=== PATIENT | female | born 1955 | race Caucasian/White ===

== ENCOUNTER 2017-11-05 07:58 | Observation (INO) | payer MEDICAID ==
[~2017-11-05] VITALS: Ht 170.2 cm; Wt 59.5 kg
[2017-11-05 08:28] VITALS: BP 140/46
[2017-11-05] MEDS ORDERED: PLEASE ENTER HEIGHT AND WEIGHT MC SCH (08:30)
[2017-11-05] MEDS ORDERED: BUDE10.2 INH (08:45)
[2017-11-05] MEDS ORDERED: IPRA4AER INH (08:45)
[2017-11-05] MEDS ORDERED: FURO20TA3 PO (08:45)
[2017-11-05] MEDS ORDERED: LISI-170 PO (08:45)
[2017-11-05] MEDS ORDERED: CARV3.1212 PO (08:45)
[2017-11-05 08:46] LABS: BASOPHILS # (AUTO) 0.04 x10^3/uL (0-0.1); BASOPHILS % (AUTO) 1 % (0-1); EOSINOPHILS # (AUTO) 0.09 x10^3/uL (0-0.4); EOSINOPHILS % (AUTO) 2 % (1-7); LYMPHOCYTES # (AUTO) 1.29 x10^3/uL (1-3.4); LYMPHOCYTES % (AUTO) 20 % (22-44); MD NO; MEAN CORPUSCULAR HEMOGLOBIN 33.4 pg (27.0-34.8); MEAN CORPUSCULAR HGB CONC 33.7 g/dL (32.4-35.8); MEAN CORPUSCULAR VOLUME 99.2 fL (80-100); MEAN PLATELET VOLUME 6.8 fL (7.4-10.4); MONOCYTES # (AUTO) 0.61 x10^3/uL (0.2-0.8); MONOCYTES % (AUTO) 10 % (2-9); NEUTROPHILS % (AUTO) 68 % (42-75); PLATELET COUNT 266 x10^3/uL (130-400); RED BLOOD COUNT 3.87 x10^6/uL (3.82-5.3); RED CELL DISTRIBUTION WIDTH 14.9 % (9.6-15.2)
[2017-11-05 08:56] LABS: ALANINE AMINOTRANSFERASE 61 U/L (12-78); ALBUMIN 4.1 g/dL (3.4-5.0); ANION GAP 7 mmol/L (5-15); CALCIUM 9.1 mg/dL (8.5-10.1); CHLORIDE 93 mmol/L (98-107); CREATININE 0.61 mg/dL (0.55-1.02)
[2017-11-05 08:59] LABS: ALKALINE PHOSPHATASE 106 U/L (45-117); BILIRUBIN,TOTAL 0.5 mg/dL (0.2-1.0); TOTAL PROTEIN 7.8 g/dL (6.4-8.2)
[2017-11-05] MEDS ORDERED: PROMETHAZINE 25 MG/ML, 1ML IV PRN (10:00)
[2017-11-05] MEDS ORDERED: EPHEDRINE 50 MG/ML, 1ML IM PRN (10:00)
[2017-11-05] MEDS ORDERED: EPHEDRINE 50 MG/ML, 1ML IVPush PRN (10:00)
[2017-11-05] MEDS ORDERED: PROMETHAZINE 12.5 MG SUPP PR PRN (10:00)
[2017-11-05] MEDS ORDERED: DIPHENHYDRAMINE 50 MG/ML, 1ML IVPush PRN (10:00)
[2017-11-05] MEDS ORDERED: ONDANSETRON ODT 8 MG PO PRN (10:00)
[2017-11-05] MEDS ORDERED: PROMETHAZINE 25 MG SUPP PR PRN (10:00)
[2017-11-05] MEDS ORDERED: ACETAMINOPHEN 325 MG TABLET PO PRN (10:00)
[2017-11-05] MEDS ORDERED: OXYcodone 5 MG/5 ML ORAL.SOL UDC PO PRN (10:00)
[2017-11-05] MEDS ORDERED: MIDAZOLAM 1 MG/ML, 2ML IV PRN (10:00)
[2017-11-05] MEDS ORDERED: MORPHINE SULFATE 4 MG/ML, 1ML IVPush PRN (10:00)
[2017-11-05] MEDS ORDERED: PROPOFOL 10 MG/ML, 20ML ONE ×2 (10:55→12:37)
[2017-11-05] MEDS ORDERED: PROPOFOL 50 ML ONE (10:55)
[2017-11-05] MEDS ORDERED: FENTANYL PF 100 MCG/2ML ONE ×2 (10:57→13:23)
[2017-11-05] MEDS ORDERED: LIDOCAINE 1%, 50ML ONE (11:28)
[2017-11-05] MEDS ORDERED: CEFAZOLIN 1,000 MG ONE ×2 (11:29→11:35)
[2017-11-05] MEDS ORDERED: ADENOSINE 6 MG/2 ML ONE (12:22)
[2017-11-05] MEDS ORDERED: ZOLPIDEM 5MG TABLET PO PRN (13:00)
[2017-11-05] MEDS ORDERED: HOLD MEDICATION MC PRN (13:00)
[2017-11-05] MEDS ORDERED: OXYcodone 5 MG/5 ML ORAL.SOL UDC ONE (13:24)
[2017-11-05] MEDS: FENTANYL PF 100 MCG/2ML IV PRN ×2 (13:30→13:44)
[2017-11-05] MEDS ORDERED: ALBUTEROL SULFATE 2.5 MG/3 ML ONE (14:33)
[2017-11-05] MEDS ORDERED: ALBUTEROL SULFATE 2.5 MG/3 ML NPPB PRN (15:00)
[2017-11-05 15:08] VITALS: BP 158/87
[2017-11-05] MEDS ORDERED: ALBUTEROL/IPRATROPIUM 2.5MG/0.5MG, 3 ML NPPB PRN (15:30)
[2017-11-05] MEDS: SODIUM CHLORIDE 0.9% 1,000 ML IV SCH ×2 (16:15→17:47)
[2017-11-05] MEDS: CARVEDILOL 12.5 MG TABLET PO SCH (17:41)
[2017-11-05] MEDS: ACETAMINOPHEN 325 MG TABLET PO PRN ×2 (17:42→23:13)
[2017-11-05] MEDS: CEFAZOLIN PMX 1GM/50ML 50 ML IVPB SCH (19:53)
[2017-11-05] MEDS: SODIUM CHLORIDE FLUSH 10ML SYR IVF SCH (19:53)
[2017-11-05 20:00] VITALS: BP_SYST 108; BP_SYST 148; BP_DIAS 66; BP_DIAS 78
[2017-11-06] MEDS ORDERED: HYDROcodone/APAP 5/325 TABLET PO ONE (01:30)
[2017-11-06] MEDS ORDERED: HYDROcodone/APAP 5/325 TABLET ONE (01:38)
[2017-11-06 01:47] VITALS: BP 148/75
[2017-11-06] MEDS: CEFAZOLIN PMX 1GM/50ML 50 ML IVPB SCH (03:59)
[2017-11-06 05:35] VITALS: BP 101/60
[2017-11-06] MEDS: CARVEDILOL 12.5 MG TABLET PO SCH (05:36)
[2017-11-06] MEDS ORDERED: SUFentanil 50 MCG/ML, 5ML ONE (07:23)
[2017-11-06] MEDS ORDERED: MIDAZOLAM 10MG/2 ML ONE (07:23)
[2017-11-06 07:45] VITALS: BP 121/72
[2017-11-06] MEDS ORDERED: FLUTICASONE/VILANTEROL 200-25MCG/INH INH SCH (09:00)
[2017-11-06] MEDS: FUROSEMIDE 20 MG TABLET PO SCH ×2 (09:00→10:21)
[2017-11-06] MEDS ORDERED: LISINOPRIL 20 MG TABLET PO SCH (09:00)
[2017-11-06] MEDS ORDERED: PROPOFOL 10 MG/ML, 20ML ONE (10:05)
[2017-11-06] MEDS ORDERED: ROCURONIUM 10MG/ML,5ML ONE ×2 (10:05)
[2017-11-06] MEDS ORDERED: AMINOCAPROIC ACID 250 MG/ML, 20ML ONE ×2 (10:05)
[2017-11-06] MEDS ORDERED: PROTAMINE SULFATE 10 MG/ML, 25ML ONE (10:05)
[2017-11-06] MEDS: SODIUM CHLORIDE FLUSH 10ML SYR IVF SCH (10:21)
[2017-11-06] MEDS: ACETAMINOPHEN 325 MG TABLET PO PRN (10:22)
== END 2017-11-06 13:40 | disposition home or self-care (01) ==
LOC: CACL 07:58 → ORIP 12:59 → 5SO 15:04 → DCLOUNGE 11-06 13:32
PROVIDERS: ADMIT Internal Medicine Cardiovascular Disease; ATTEND Internal Medicine Cardiovascular Disease
DX: I42.9 Cardiomyopathy, unspecified (principal); I45.9 Conduction disorder, unspecified; I50.9 Heart failure, unspecified; I48.91 Unspecified atrial fibrillation; I34.0 Nonrheumatic mitral (valve) insufficiency
CPT/HCPCS: 33208; 33225; 36415; 71045; 80053; 85025; 94640; 96365; 96366; C1769; C1779; C1887; C1892; C1900; C2621; G0378; J0690; J2250; J2704; J3010; J3490; J7613; Q9967; J0153; J2720

== ENCOUNTER 2018-05-08 11:47 | Inpatient (IN) | payer MEDICAID ==
[~2018-05-08] VITALS: Ht 162.6 cm; Wt 81.2 kg
[~2018-05-08 11:47] MED LIST: BUDE10.2 INH; CARV3.1212 PO; ETOMIDATE 20 MG/10 ML ONE; FURO20TA3 PO; IPRA4AER INH; LISI-170 PO; MIDAZOLAM 1 MG/ML, 5ML ONE; SUCCINYLCHOLINE 20 MG/ML, 10ML ONE
[2018-05-08] MEDS ORDERED: SODIUM CHLORIDE 0.9% 1,000 ML IV ONE (11:58)
[2018-05-08] MEDS ORDERED: ALBUTEROL 0.5%, 20ML NPPB SCH (12:00)
[2018-05-08] MEDS ORDERED: IPRATROPIUM 0.5 MG/2.5 ML INHA NPPB ONE (12:00)
[2018-05-08] MEDS ORDERED: methylPREDNISolone SOD SUCC 125 MG/2 ML IVP ONE (12:00)
[2018-05-08] MEDS ORDERED: SODIUM CHLORIDE FLUSH 10ML SYR IVF ONE (12:00)
[2018-05-08] MEDS ORDERED: SODIUM CHLORIDE 0.9% 1,000ML IVBOLUS ONE ×2 (12:00→13:30)
--- NOTE | 2018-05-08 12:00 | NUR ---
requested records from [facility]
[2018-05-08] MEDS ORDERED: methylPREDNISolone SOD SUCC 125 MG/2 ML ONE (12:08)
[2018-05-08] MEDS ORDERED: ALBUTEROL/IPRATROPIUM 2.5MG/0.5MG, 3 ML ONE ×3 (12:09→16:32)
[2018-05-08] MEDS ORDERED: PIPERACILLIN/TAZO/PMX 3.375GM 50 ML IV ONE (12:30)
--- NOTE | 2018-05-08 12:33 | NUR ---
PT PRESENTED FROM HOME W RESP DIFF IS ON HOME O2 UNDER TX FOR COPD EXSACERBATION FROM NN UNABLE TO TALK ON ARRIVAL RELATED TO RESP DIFF
[2018-05-08 12:34] LABS: RAPID INFLUENZA A Negative (Negative); RAPID INFLUENZA B Negative (Negative)
--- NOTE | 2018-05-08 12:41 | NUR ---
PCO2 77.1 AND O2 SAT PER LAB REPORTED TO ERP
[2018-05-08 12:49] LABS: MEAN CORPUSCULAR HEMOGLOBIN 33.7 pg (27.0-34.8); MEAN CORPUSCULAR HGB CONC 32.6 g/dL (32.4-35.8); MEAN CORPUSCULAR VOLUME 103.3 fL (80-100); MEAN PLATELET VOLUME 7.1 fL (7.4-10.4); PLATELET COUNT 484 x10^3/uL (130-400); RED CELL DISTRIBUTION WIDTH 14.1 % (9.6-15.2)
--- NOTE | 2018-05-08 12:55 | NUR ---
PT CHANGE FROM OPTI FLOW TO BIPAP
[2018-05-08 12:56] LABS: ALBUMIN 2.4 g/dL (3.4-5.0); ANION GAP 5 mmol/L (5-15); CALCIUM 8.6 mg/dL (8.5-10.1); CHLORIDE 99 mmol/L (98-107); D-DIMER 1.39 ug/mlFEU (0.00-0.52); INTERNATIONAL NORMALIZED RATIO 1.18 (0.93-1.1); PROTHROMBIN TIME 12.3 Seconds (9.6-11.5)
[2018-05-08 12:59] LABS: ALANINE AMINOTRANSFERASE 15 U/L (12-78); ALKALINE PHOSPHATASE 70 U/L (45-117); BILIRUBIN,TOTAL 0.3 mg/dL (0.2-1.0); CREATININE 1.99 mg/dL (0.55-1.02); TOTAL PROTEIN 6.2 g/dL (6.4-8.2)
[2018-05-08 13:07] LABS: TROPONIN I 0.131 ng/mL (0.000-0.045)
[2018-05-08] MEDS ORDERED: MIDAZOLAM HCL 25 MG in SODIUM CHLORIDE 0.9% 245 ML IV PRN (13:18)
[2018-05-08 13:21] LABS: MD YES
[2018-05-08 13:27] LABS: BAND#(MANUAL) 12.04 x10^3/uL; BANDS%(MANUAL) 27 % (0-7); LYMPH#(MANUAL) 2.23 x10^3/uL (1-3.4); LYMPHS% (MANUAL) 5 % (22-44); METAMYELOCYTES# (MANUAL) 0.45 x10^3/uL (0-0); METAMYELOCYTES% (MANUAL) 1 % (0-1); MONOS#(MANUAL) 2.68 x10^3/uL (0.3-2.7); MONOS% (MANUAL) 6 % (2-9); SEG#(MANUAL) 27.21 x10^3/uL (1.8-6.8); SEGS% (MANUAL) 61 % (42-75)
[2018-05-08] MEDS ORDERED: ETOMIDATE 20 MG/10 ML IV ONE (13:30)
[2018-05-08] MEDS ORDERED: ASPIRIN 300 MG SUPP PR ONE (13:30)
[2018-05-08] MEDS ORDERED: VECURONIUM 10 MG ONE (13:30)
[2018-05-08] MEDS ORDERED: VECURONIUM 10 MG IVPush ONE (13:30)
[2018-05-08] MEDS ORDERED: SUCCINYLCHOLINE 20 MG/ML, 10ML IVPush ONE (13:30)
[2018-05-08 13:31] LABS: <PLATELET ESTIMATE> INCREASED; <PLT MORPHOLOGY> NORMAL PLT MORPH; PMNS WITH VACUOLES 1+; POLYCHROMASIA 1+
[2018-05-08] MEDS: SODIUM CHLORIDE 0.9% 1,000 ML IV SCH ×2 (13:31→23:52)
--- NOTE | 2018-05-08 13:56 | NUR ---
ASSUMED CARE OF PT WHILE PRIMARY RN AT LUNCH.
--- NOTE | 2018-05-08 13:57 | NUR ---
LAB IN FOR MONA
[2018-05-08] MEDS ORDERED: POLYETHYLENE GLYCOL 17 GM PACKET PO PRN (14:00)
[2018-05-08] MEDS ORDERED: BISACODYL 10 MG SUPP PR PRN (14:00)
--- NOTE | 2018-05-08 14:04 | NUR ---
PT MOVING LEGS AND MOVING ARMS. LAB AT BEDSIDE UNABLE TO GET ABGS.
--- NOTE | 2018-05-08 14:17 | NUR ---
PULIDO INSERTED PER MD ORDER.
[2018-05-08] MEDS ORDERED: NOREPINEPHRINE 4 MG in SODIUM CHLORIDE 0.9% 246 ML IV PRN (14:30)
--- NOTE | 2018-05-08 15:00 | NUR ---
PT INTUBATED AT APPOX THIS TIME UNDER RSI W DR LANDAVERDE AND RESP AT THE BS SATS MAINTAINED THROUGHOUT 23 AT THE LIPS
[2018-05-08] MEDS ORDERED: PROPOFOL 100 ML IV PRN (15:12)
[2018-05-08] MEDS ORDERED: LIDOCAINE-MPF 1%, 2ML ENDO PRN (15:30)
[2018-05-08] MEDS ORDERED: PHARMACY MAY ADJ FOR RENAL FX MC SCH (15:30)
--- NOTE | 2018-05-08 15:36 | NUR ---
CENTRAL LINE PLACEMENT COMPLETED
--- NOTE | 2018-05-08 15:40 | NUR ---
critical values taken from lab and reported to GAYLE Iraheta as follows: cortisol >150, ph 7.179, co2 81.8, o2 42.6, o2 sat 64.2, ph temp corrected 7.195, temp corrected co2 77.6, temp corrected o2 39.1. per , lab does not need to redraw, lab called to notify.
--- NOTE | 2018-05-08 15:55 | NUR ---
REPORT CALLED TO THE FLOOR PT THEN TRANSPORED TO THE FLOOR W RESP ON THE VENT NO CHNG IN PT COND DURING TRANSPORT
[2018-05-08] MEDS ORDERED: HEPARIN 25,000 UNITS/500ML PMX 500 ML IV PRN (17:00)
[2018-05-08] MEDS ORDERED: HEPARIN 5,000 UNITS/ML, 1ML IV ONE (17:00)
[2018-05-08] MEDS ORDERED: CEFTRIAXONE PMX 1GM/50ML 50 ML IV SCH (17:00)
[2018-05-08] MEDS ORDERED: HEPARIN 5,000 UNITS/ML, 1ML IV PRN (17:00)
[2018-05-08 17:09] LABS: MICROSCOPIC INDICATED
[2018-05-08 17:17] LABS: CULTURE INDICATED? YES
[2018-05-08] MEDS: AMIODARONE 900 MG in DEXTROSE 5% 482 ML IV PRN (18:27)
[2018-05-08] MEDS ORDERED: AMIODARONE 150 MG in DEXTROSE 5% 100 ML IV ONE (18:30)
[2018-05-08] MEDS ORDERED: FILTER 0.22 MICRON IV PRN (18:30)
[2018-05-08] MEDS ORDERED: NOREPINEPHRINE 1 MG/ML, 4ML ONE (18:53)
[2018-05-08] MEDS: DOXYCYCLINE 100 MG in DEXTROSE 5% 250 ML IV SCH (19:09)
[2018-05-08] MEDS: NOREPINEPHRINE 8 MG in SODIUM CHLORIDE 0.9% 242 ML IV PRN ×2 (19:58→23:51)
[2018-05-08] MEDS: PHENYLEPHRINE 20 MG in SODIUM CHLORIDE 0.9% 248 ML IV PRN ×2 (19:58→23:48)
[2018-05-08] MEDS: VASOPRESSIN 100 UNIT in SODIUM CHLORIDE 0.9% 495 ML IV PRN (19:58)
[2018-05-08 19:59] LABS: TROPONIN I 0.132 ng/mL (0.000-0.045)
[2018-05-08] MEDS: SODIUM BICARBONATE 8.4% 100 MEQ in DEXTROSE 5% 1,000 ML IV SCH (20:52)
[2018-05-08] MEDS ORDERED: FAMOTIDINE 20 MG/2 ML IVPush SCH (21:00)
[2018-05-09] MEDS: LORazepam 2 MG/ML, 1ML IVPush PRN
[2018-05-09 01:32] LABS: TROPONIN I 0.159 ng/mL (0.000-0.045)
[2018-05-09] MEDS ORDERED: ALBUTEROL/IPRATROPIUM 2.5MG/0.5MG, 3 ML ONE (03:04)
[2018-05-09] MEDS: ALBUTEROL/IPRATROPIUM 2.5MG/0.5MG, 3 ML NPPB PRN ×2 (03:10→10:55)
[2018-05-09] MEDS: SODIUM BICARBONATE 8.4% 100 MEQ in DEXTROSE 5% 1,000 ML IV SCH ×3 (03:28→19:50)
[2018-05-09] MEDS: NOREPINEPHRINE 8 MG in SODIUM CHLORIDE 0.9% 242 ML IV PRN ×4 (03:29→19:53)
[2018-05-09] MEDS: PHENYLEPHRINE 20 MG in SODIUM CHLORIDE 0.9% 248 ML IV PRN ×3 (03:29→10:36)
[2018-05-09 04:00] VITALS: BP 118/52
[2018-05-09 05:16] LABS: ALANINE AMINOTRANSFERASE 784 U/L (12-78); ALBUMIN 1.5 g/dL (3.4-5.0); ANION GAP 8 mmol/L (5-15); CALCIUM 6.7 mg/dL (8.5-10.1); CHLORIDE 100 mmol/L (98-107); CREATININE 2.34 mg/dL (0.55-1.02)
[2018-05-09 05:31] LABS: HEMOGRAM NOTE RECHECKED; MEAN CORPUSCULAR HEMOGLOBIN 34.4 pg (27.0-34.8); MEAN CORPUSCULAR HGB CONC 32.5 g/dL (32.4-35.8); MEAN CORPUSCULAR VOLUME 105.9 fL (80-100); MEAN PLATELET VOLUME 7.1 fL (7.4-10.4); PLATELET COUNT 434 x10^3/uL (130-400); RED BLOOD COUNT 3.06 x10^6/uL (3.82-5.3); RED CELL DISTRIBUTION WIDTH 14.3 % (9.6-15.2)
[2018-05-09 05:33] LABS: ALKALINE PHOSPHATASE 61 U/L (45-117); BILIRUBIN,TOTAL 0.2 mg/dL (0.2-1.0); CHOL/HDL RATIO 2.4; CHOLESTEROL, TOTAL 66 mg/dL (140-239); HDL CHOL % 42 % (28-40); HDL CHOLESTEROL (DIRECT) 28 mg/dL (40-60); LDL CHOLESTEROL,CALCULATED 24 mg/dL (54-169); LDL/HDL RATIO 0.9 (0.5-3.0); TOTAL PROTEIN 4.4 g/dL (6.4-8.2); TRIGLYCERIDES 69 mg/dL (50-200); VLDL CHOLESTEROL 14 mg/dL (0-25)
[2018-05-09] MEDS: DOXYCYCLINE 100 MG in DEXTROSE 5% 250 ML IV SCH ×2 (05:43→17:28)
[2018-05-09 06:31] LABS: MD YES
[2018-05-09 06:34] LABS: BAND#(MANUAL) 18.59 x10^3/uL; BANDS%(MANUAL) 45 % (0-7); LYMPH#(MANUAL) 0.41 x10^3/uL (1-3.4); LYMPHS% (MANUAL) 1 % (22-44); METAMYELOCYTES# (MANUAL) 2.89 x10^3/uL (0-0); METAMYELOCYTES% (MANUAL) 7 % (0-1); MONOS#(MANUAL) 0.41 x10^3/uL (0.3-2.7); MONOS% (MANUAL) 1 % (2-9); SEGS% (MANUAL) 46 % (42-75)
[2018-05-09 06:35] LABS: NRBC % (MANUAL) 1 % (0-1)
[2018-05-09 06:37] LABS: <PLATELET ESTIMATE> INCREASED; <PLT MORPHOLOGY> NORMAL PLT MORPH; PMNS WITH VACUOLES 1+
[2018-05-09 06:38] LABS: TOXIC GRAN 1+
[2018-05-09] MEDS ORDERED: SODIUM BICARBONATE 1 MEQ/ML, 50ML VIAL ONE (07:34)
[2018-05-09] MEDS ORDERED: SODIUM BICARB 8.4%, 50ML SYRINGE IVPush ONE (08:00)
[2018-05-09] MEDS: SENNA/DOCUSATE TABLET PO SCH (09:00)
[2018-05-09] MEDS ORDERED: INSULIN LISPRO 100 UNITS/ML, PEN SQ-INSULIN SCH (11:00)
[2018-05-09] MEDS: INSULIN LISPRO 100 UNITS/ML, PEN SQ-INSULIN SCH ×3 (11:38→23:00)
[2018-05-09] MEDS: PIPERACILLIN/TAZO/PMX 3.375GM 50 ML IV SCH ×2 (14:15→19:50)
[2018-05-09] MEDS: ALBUTEROL/IPRATROPIUM 2.5MG/0.5MG, 3 ML INLINE SCH ×4 (15:25→22:39)
[2018-05-09] MEDS: morphine SULFATE 10 MG/ML, 1ML IVPush PRN (17:28)
[2018-05-09] MEDS: AMIODARONE 900 MG in DEXTROSE 5% 482 ML IV PRN (18:17)
[2018-05-09] MEDS: FAMOTIDINE 20 MG/2 ML IVPush SCH (23:29)
[2018-05-10] MEDS: SODIUM BICARBONATE 8.4% 100 MEQ in DEXTROSE 5% 1,000 ML IV SCH ×2 (02:00→11:34)
[2018-05-10] MEDS: PIPERACILLIN/TAZO/PMX 3.375GM 50 ML IV SCH ×4 (02:00→20:26)
[2018-05-10] MEDS: morphine SULFATE 10 MG/ML, 1ML IVPush PRN ×2 (02:00→23:32)
[2018-05-10] MEDS: ALBUTEROL/IPRATROPIUM 2.5MG/0.5MG, 3 ML INLINE SCH ×6 (03:00→23:25)
[2018-05-10] MEDS: LORazepam 2 MG/ML, 1ML IVPush PRN (03:59)
[2018-05-10 04:00] VITALS: BP 104/55
[2018-05-10 04:45] LABS: MEAN CORPUSCULAR HEMOGLOBIN 34.4 pg (27.0-34.8); MEAN CORPUSCULAR HGB CONC 33.1 g/dL (32.4-35.8); MEAN CORPUSCULAR VOLUME 103.9 fL (80-100); PLATELET COUNT 267 x10^3/uL (130-400); RED BLOOD COUNT 2.76 x10^6/uL (3.82-5.3); RED CELL DISTRIBUTION WIDTH 14.3 % (9.6-15.2)
[2018-05-10] MEDS: INSULIN LISPRO 100 UNITS/ML, PEN SQ-INSULIN SCH ×4 (05:00→22:31)
[2018-05-10] MEDS: DOXYCYCLINE 100 MG in DEXTROSE 5% 250 ML IV SCH ×2 (05:27→17:49)
[2018-05-10 05:46] LABS: MD YES
[2018-05-10 05:49] LABS: <PLATELET ESTIMATE> ADEQUATE; <PLT MORPHOLOGY> NORMAL PLT MORPH; BAND#(MANUAL) 3.31 x10^3/uL; BANDS%(MANUAL) 12 % (0-7); LYMPH#(MANUAL) 0.28 x10^3/uL (1-3.4); LYMPHS% (MANUAL) 1 % (22-44); MONOS#(MANUAL) 2.21 x10^3/uL (0.3-2.7); MONOS% (MANUAL) 8 % (2-9); MYELOCYTES# (MANUAL) 0.28 x10^3/uL (0-0); MYELOCYTES% (MANUAL) 1 % (0-0); NRBC % (MANUAL) 1 % (0-1); PMNS WITH VACUOLES 1+; SEG#(MANUAL) 21.53 x10^3/uL (1.8-6.8); SEGS% (MANUAL) 78 % (42-75); TOXIC GRAN 1+
[2018-05-10 05:50] LABS: BASOPHILLIC STIPPLING 1+
[2018-05-10 05:52] LABS: POLYCHROMASIA 1+
[2018-05-10] MEDS: NOREPINEPHRINE 8 MG in SODIUM CHLORIDE 0.9% 242 ML IV PRN (08:06)
[2018-05-10] MEDS: SENNA/DOCUSATE TABLET PO SCH (08:24)
[2018-05-10 08:35] LABS: ALBUMIN 1.3 g/dL (3.4-5.0); ANION GAP 9 mmol/L (5-15); CALCIUM 6.4 mg/dL (8.5-10.1); CHLORIDE 92 mmol/L (98-107)
[2018-05-10 08:43] LABS: ALANINE AMINOTRANSFERASE 1290 U/L (12-78); ALKALINE PHOSPHATASE 81 U/L (45-117); BILIRUBIN,TOTAL 0.3 mg/dL (0.2-1.0); CREATININE 2.56 mg/dL (0.55-1.02); TOTAL PROTEIN 4.1 g/dL (6.4-8.2)
[2018-05-10] MEDS ORDERED: MAGNESIUM SULFATE PMX 4GM/100M 100 ML IVPB ONE (09:00)
[2018-05-10] MEDS ORDERED: ENOXAPARIN 80 MG/0.8 ML SQ SCH (10:30)
[2018-05-10] MEDS ORDERED: GLUCAGON 1 MG IM PRN (18:00)
[2018-05-10] MEDS: FAMOTIDINE 20 MG/2 ML IVPush SCH (20:26)
[2018-05-10] MEDS: SODIUM CHLORIDE FLUSH 10ML SYR IVF SCH (20:26)
[2018-05-10] MEDS: OXYcodone IR 5MG TABLET PO PRN (20:32)
[2018-05-11] MEDS: PIPERACILLIN/TAZO/PMX 3.375GM 50 ML IV SCH ×3 (01:54→13:44)
[2018-05-11] MEDS: AMIODARONE 900 MG in DEXTROSE 5% 482 ML IV PRN (02:24)
[2018-05-11] MEDS: ALBUTEROL/IPRATROPIUM 2.5MG/0.5MG, 3 ML INLINE SCH ×2 (03:00→06:17)
[2018-05-11] MEDS: OXYcodone IR 5MG TABLET PO PRN (03:28)
[2018-05-11] MEDS: INSULIN LISPRO 100 UNITS/ML, PEN SQ-INSULIN SCH ×4 (05:00→21:49)
[2018-05-11 05:27] LABS: MEAN CORPUSCULAR HEMOGLOBIN 33.7 pg (27.0-34.8); MEAN CORPUSCULAR HGB CONC 32.9 g/dL (32.4-35.8); MEAN CORPUSCULAR VOLUME 102.3 fL (80-100); MEAN PLATELET VOLUME 7.3 fL (7.4-10.4); PLATELET COUNT 194 x10^3/uL (130-400); RED BLOOD COUNT 2.86 x10^6/uL (3.82-5.3); RED CELL DISTRIBUTION WIDTH 14.2 % (9.6-15.2)
[2018-05-11] MEDS: DOXYCYCLINE 100 MG in DEXTROSE 5% 250 ML IV SCH ×2 (05:34→17:13)
[2018-05-11 05:55] LABS: MD YES
[2018-05-11 05:56] LABS: BAND#(MANUAL) 1.28 x10^3/uL; BANDS%(MANUAL) 5 % (0-7)
[2018-05-11 05:57] LABS: SEGS% (MANUAL) 91 % (42-75)
[2018-05-11 05:58] LABS: LYMPH#(MANUAL) 0.26 x10^3/uL (1-3.4); LYMPHS% (MANUAL) 1 % (22-44); MONOS#(MANUAL) 0.77 x10^3/uL (0.3-2.7); MONOS% (MANUAL) 3 % (2-9); PMNS WITH VACUOLES 1+; TOXIC GRAN 1+
[2018-05-11 06:00] LABS: <PLATELET ESTIMATE> ADEQUATE; <PLT MORPHOLOGY> NORMAL PLT MORPH
[2018-05-11] MEDS: SODIUM CHLORIDE FLUSH 10ML SYR IVF SCH ×2 (07:18→20:39)
[2018-05-11 07:35] LABS: ALBUMIN 1.3 g/dL (3.4-5.0); ANION GAP 10 mmol/L (5-15); CALCIUM 6.6 mg/dL (8.5-10.1); CHLORIDE 85 mmol/L (98-107)
[2018-05-11] MEDS: SENNA/DOCUSATE TABLET PO SCH (07:38)
[2018-05-11 07:39] LABS: ALANINE AMINOTRANSFERASE 843 U/L (12-78); ALKALINE PHOSPHATASE 93 U/L (45-117); BILIRUBIN,TOTAL 0.9 mg/dL (0.2-1.0); CREATININE 2.86 mg/dL (0.55-1.02); TOTAL PROTEIN 4.2 g/dL (6.4-8.2)
[2018-05-11] MEDS ORDERED: HEPARIN 5,000 UNITS/ML, 1ML IV ONE (08:30)
[2018-05-11] MEDS ORDERED: AMIODARONE 200 MG TABLET PO SCH (09:00)
[2018-05-11] MEDS: morphine SULFATE 10 MG/ML, 1ML IVPush PRN (09:04)
[2018-05-11] MEDS: D5%-0.9% NACL 1,000 ML IV SCH ×2 (09:12→20:39)
[2018-05-11] MEDS: HEPARIN 25,000 UNITS/500ML PMX 500 ML IV PRN (09:16)
[2018-05-11] MEDS: ALBUTEROL/IPRATROPIUM 2.5MG/0.5MG, 3 ML INLINE PRN (09:43)
[2018-05-11] MEDS ORDERED: CALCIUM CHLORIDE 13.6 MEQ in SODIUM CHLORIDE 0.9% 100 ML IV ONE (10:00)
[2018-05-11] MEDS ORDERED: AMIODARONE 900 MG in DEXTROSE 5% 482 ML IV PRN (10:00)
[2018-05-11] MEDS: AMIODARONE 150 MG in DEXTROSE 5% 100 ML IV ONE ×2 (10:00→10:41)
--- NOTE | 2018-05-11 11:43 | NUR ---
TF GOAL: w/ propofol: PROMOTE @ 50ML/HR off propofol: PROMOTE @ 60ML/HR
[2018-05-11] MEDS: NOREPINEPHRINE 8 MG in SODIUM CHLORIDE 0.9% 242 ML IV PRN (15:30)
[2018-05-11] MEDS ORDERED: FAMOTIDINE 20 MG TABLET ONE (20:38)
[2018-05-11] MEDS: PIPERACILLIN/TAZO/PMX 2.25GM 50 ML IVPB SCH (20:39)
[2018-05-11] MEDS: FAMOTIDINE 40 MG/5 ML ORAL SUSP NG SCH (20:40)
[2018-05-11] MEDS: HEPARIN 5,000 UNITS/ML, 1ML IV PRN (22:30)
[2018-05-12] MEDS: OXYcodone IR 5MG TABLET PO PRN ×3 (00:08→14:05)
[2018-05-12] MEDS: D5%-0.9% NACL 1,000 ML IV SCH ×2 (02:28→23:40)
[2018-05-12] MEDS: PIPERACILLIN/TAZO/PMX 2.25GM 50 ML IVPB SCH ×4 (02:28→20:15)
[2018-05-12 04:42] LABS: MEAN CORPUSCULAR HEMOGLOBIN 34.2 pg (27.0-34.8); MEAN CORPUSCULAR HGB CONC 33.4 g/dL (32.4-35.8); MEAN CORPUSCULAR VOLUME 102.3 fL (80-100); MEAN PLATELET VOLUME 7.8 fL (7.4-10.4); PLATELET COUNT 126 x10^3/uL (130-400); RED BLOOD COUNT 2.58 x10^6/uL (3.82-5.3); RED CELL DISTRIBUTION WIDTH 14.2 % (9.6-15.2)
[2018-05-12] MEDS: INSULIN LISPRO 100 UNITS/ML, PEN SQ-INSULIN SCH ×4 (04:48→23:00)
[2018-05-12 04:50] LABS: ANION GAP 9 mmol/L (5-15); CALCIUM 7.1 mg/dL (8.5-10.1); CHLORIDE 87 mmol/L (98-107); CREATININE 2.76 mg/dL (0.55-1.02)
[2018-05-12 05:00] LABS: MD YES
[2018-05-12 05:02] LABS: BANDS%(MANUAL) 4 % (0-7); LYMPHS% (MANUAL) 4 % (22-44); MONOS% (MANUAL) 4 % (2-9); SEG#(MANUAL) 19.89 x10^3/uL (1.8-6.8); SEGS% (MANUAL) 88 % (42-75)
[2018-05-12 05:03] LABS: <PLATELET ESTIMATE> ADEQUATE; <PLT MORPHOLOGY> NORMAL PLT MORPH; ANISOCYTOSIS 1+; PMNS WITH VACUOLES 1+; TOXIC GRAN 1+
[2018-05-12] MEDS ORDERED: CALCIUM GLUCONATE 4.6 MEQ in SODIUM CHLORIDE 0.9% 50 ML IV ONE (05:30)
[2018-05-12] MEDS: DOXYCYCLINE 100 MG in DEXTROSE 5% 250 ML IV SCH ×2 (06:00→17:52)
[2018-05-12] MEDS: SENNA/DOCUSATE TABLET PO SCH (07:45)
[2018-05-12] MEDS: SODIUM CHLORIDE FLUSH 10ML SYR IVF SCH ×2 (08:34→23:25)
[2018-05-12] MEDS: VASOPRESSIN 100 UNIT in SODIUM CHLORIDE 0.9% 495 ML IV PRN (11:02)
[2018-05-12] MEDS: AMIODARONE 200 MG TABLET PO SCH ×2 (11:47→23:25)
[2018-05-12] MEDS: NOREPINEPHRINE 8 MG in SODIUM CHLORIDE 0.9% 242 ML IV PRN (13:01)
[2018-05-12] MEDS: HEPARIN 25,000 UNITS/500ML PMX 500 ML IV PRN (15:23)
[2018-05-12] MEDS: FAMOTIDINE 40 MG/5 ML ORAL SUSP NG SCH (23:25)
[2018-05-13] MEDS: PIPERACILLIN/TAZO/PMX 2.25GM 50 ML IVPB SCH ×4 (01:51→20:44)
[2018-05-13] MEDS: OXYcodone IR 5MG TABLET PO PRN (03:26)
[2018-05-13] MEDS: INSULIN LISPRO 100 UNITS/ML, PEN SQ-INSULIN SCH ×4 (05:00→23:00)
[2018-05-13] MEDS: DOXYCYCLINE 100 MG in DEXTROSE 5% 250 ML IV SCH (05:41)
[2018-05-13 06:17] LABS: MEAN CORPUSCULAR HEMOGLOBIN 34.6 pg (27.0-34.8); MEAN CORPUSCULAR HGB CONC 34.1 g/dL (32.4-35.8); MEAN CORPUSCULAR VOLUME 101.4 fL (80-100); MEAN PLATELET VOLUME 8.8 fL (7.4-10.4); PLATELET COUNT 111 x10^3/uL (130-400); RED BLOOD COUNT 2.49 x10^6/uL (3.82-5.3); RED CELL DISTRIBUTION WIDTH 14.6 % (9.6-15.2)
[2018-05-13 06:58] LABS: MD YES
[2018-05-13 07:03] LABS: <PLATELET ESTIMATE> DECREASED; <PLT MORPHOLOGY> NORMAL PLT MORPH; ANISOCYTOSIS 1+; BAND#(MANUAL) 1.43 x10^3/uL; BANDS%(MANUAL) 6 % (0-7); LYMPH#(MANUAL) 0.72 x10^3/uL (1-3.4); LYMPHS% (MANUAL) 3 % (22-44); MONOS#(MANUAL) 0.72 x10^3/uL (0.3-2.7); MONOS% (MANUAL) 3 % (2-9); MYELOCYTES# (MANUAL) 0.24 x10^3/uL (0-0); MYELOCYTES% (MANUAL) 1 % (0-0); NRBC % (MANUAL) 2 % (0-1); PMNS WITH VACUOLES 1+; SEG#(MANUAL) 20.79 x10^3/uL (1.8-6.8); SEGS% (MANUAL) 87 % (42-75); TOXIC GRAN 1+
[2018-05-13] MEDS: HEPARIN 5,000 UNITS/ML, 1ML IV PRN ×3 (07:17→21:58)
[2018-05-13 07:41] LABS: ANION GAP 10 mmol/L (5-15); CALCIUM 7.4 mg/dL (8.5-10.1); CHLORIDE 88 mmol/L (98-107); CREATININE 2.59 mg/dL (0.55-1.02)
[2018-05-13] MEDS: ALBUMIN HUMAN 25% 100 ML IV SCH ×2 (09:20→20:44)
[2018-05-13] MEDS: SENNA/DOCUSATE TABLET PO SCH (09:20)
[2018-05-13] MEDS: SODIUM CHLORIDE FLUSH 10ML SYR IVF SCH ×2 (09:20→20:45)
[2018-05-13] MEDS: AMIODARONE 200 MG TABLET PO SCH ×2 (09:20→20:45)
[2018-05-13] MEDS: FUROSEMIDE 40 MG/4 ML IV SCH ×2 (11:43→23:01)
[2018-05-13] MEDS: NOREPINEPHRINE 8 MG in SODIUM CHLORIDE 0.9% 242 ML IV PRN (11:44)
[2018-05-13] MEDS: morphine SULFATE 10 MG/ML, 1ML IVPush PRN (13:04)
[2018-05-13] MEDS: HEPARIN 25,000 UNITS/500ML PMX 500 ML IV PRN (18:26)
[2018-05-13] MEDS: D5%-0.9% NACL 1,000 ML IV SCH (20:43)
[2018-05-13] MEDS: FAMOTIDINE 40 MG/5 ML ORAL SUSP NG SCH (20:45)
[2018-05-14] MEDS: morphine SULFATE 10 MG/ML, 1ML IVPush PRN (01:50)
[2018-05-14] MEDS: PIPERACILLIN/TAZO/PMX 2.25GM 50 ML IVPB SCH ×3 (01:50→13:58)
[2018-05-14] MEDS: INSULIN LISPRO 100 UNITS/ML, PEN SQ-INSULIN SCH ×4 (05:00→23:00)
[2018-05-14 05:43] LABS: MEAN CORPUSCULAR HEMOGLOBIN 34.1 pg (27.0-34.8); MEAN CORPUSCULAR HGB CONC 33.2 g/dL (32.4-35.8); MEAN CORPUSCULAR VOLUME 102.7 fL (80-100); MEAN PLATELET VOLUME 9.1 fL (7.4-10.4); PLATELET COUNT 72 x10^3/uL (130-400); RED BLOOD COUNT 2.14 x10^6/uL (3.82-5.3); RED CELL DISTRIBUTION WIDTH 14.4 % (9.6-15.2)
[2018-05-14 06:00] LABS: MD YES
[2018-05-14 06:02] LABS: <PLATELET ESTIMATE> DECREASED; <PLT MORPHOLOGY> NORMAL PLT MORPH; ANISOCYTOSIS 1+; BAND#(MANUAL) 0.77 x10^3/uL; BANDS%(MANUAL) 4 % (0-7); LYMPH#(MANUAL) 0.19 x10^3/uL (1-3.4); LYMPHS% (MANUAL) 1 % (22-44); METAMYELOCYTES# (MANUAL) 0.19 x10^3/uL (0-0); METAMYELOCYTES% (MANUAL) 1 % (0-1); MONOS#(MANUAL) 0.77 x10^3/uL (0.3-2.7); MONOS% (MANUAL) 4 % (2-9); PMNS WITH VACUOLES 1+; SEG#(MANUAL) 17.37 x10^3/uL (1.8-6.8); SEGS% (MANUAL) 90 % (42-75); TOXIC GRAN 1+
[2018-05-14 06:04] LABS: BASOPHILLIC STIPPLING 1+
[2018-05-14] MEDS ORDERED: MAGNESIUM SULFATE 4 GM in SODIUM CHLORIDE 0.9% 100 ML IV ONE (08:00)
[2018-05-14 08:12] LABS: ALANINE AMINOTRANSFERASE 269 U/L (12-78); ALBUMIN 2.1 g/dL (3.4-5.0); ANION GAP 11 mmol/L (5-15); CALCIUM 7.7 mg/dL (8.5-10.1); CHLORIDE 88 mmol/L (98-107); CREATININE 2.54 mg/dL (0.55-1.02)
[2018-05-14 08:14] LABS: ALKALINE PHOSPHATASE 134 U/L (45-117); BILIRUBIN,TOTAL 0.7 mg/dL (0.2-1.0); TOTAL PROTEIN 4.9 g/dL (6.4-8.2)
[2018-05-14] MEDS ORDERED: MAGNESIUM SULFATE PMX 4GM/100M 100 ML IV ONE (08:30)
[2018-05-14] MEDS: FONDAPARINUX 7.5 MG/0.6 ML SQ SCH (09:09)
[2018-05-14] MEDS: AMIODARONE 200 MG TABLET PO SCH ×2 (09:09→21:12)
[2018-05-14] MEDS: SENNA/DOCUSATE TABLET PO SCH (09:09)
[2018-05-14] MEDS: SODIUM CHLORIDE FLUSH 10ML SYR IVF SCH ×2 (09:10→21:13)
[2018-05-14] MEDS: ALBUMIN HUMAN 25% 100 ML IV SCH ×2 (09:10→21:13)
[2018-05-14] MEDS: POTASSIUM CHLORIDE 20 MEQ PACKET PO SCH ×2 (09:15→17:32)
[2018-05-14] MEDS: FUROSEMIDE 40 MG/4 ML IV SCH ×2 (11:17→22:46)
[2018-05-14] MEDS: PIPERACILLIN/TAZO/PMX 3.375GM 50 ML IV SCH (19:44)
[2018-05-14] MEDS: OXYcodone IR 5MG TABLET PO PRN (21:12)
[2018-05-14] MEDS: FAMOTIDINE 40 MG/5 ML ORAL SUSP NG SCH (21:13)
[2018-05-14] MEDS: NOREPINEPHRINE 8 MG in SODIUM CHLORIDE 0.9% 242 ML IV PRN (22:40)
[2018-05-15] MEDS: PIPERACILLIN/TAZO/PMX 3.375GM 50 ML IV SCH ×4 (02:38→19:42)
[2018-05-15] MEDS: INSULIN LISPRO 100 UNITS/ML, PEN SQ-INSULIN SCH ×4 (04:49→22:44)
[2018-05-15] MEDS: OXYcodone IR 5MG TABLET PO PRN ×3 (04:55→22:55)
[2018-05-15 05:20] LABS: MEAN CORPUSCULAR HEMOGLOBIN 36.1 pg (27.0-34.8); MEAN CORPUSCULAR HGB CONC 35.1 g/dL (32.4-35.8); MEAN CORPUSCULAR VOLUME 102.7 fL (80-100); MEAN PLATELET VOLUME 9.2 fL (7.4-10.4); PLATELET COUNT 77 x10^3/uL (130-400); RED BLOOD COUNT 1.99 x10^6/uL (3.82-5.3); RED CELL DISTRIBUTION WIDTH 14.1 % (9.6-15.2)
[2018-05-15 05:52] LABS: MD YES
[2018-05-15 05:53] LABS: BAND#(MANUAL) 0.61 x10^3/uL; BANDS%(MANUAL) 3 % (0-7); EOS% (MANUAL) 1 % (1-7); LYMPHS% (MANUAL) 1 % (22-44); MONOS% (MANUAL) 1 % (2-9); NRBC % (MANUAL) 2 % (0-1); SEG#(MANUAL) 19.18 x10^3/uL (1.8-6.8); SEGS% (MANUAL) 94 % (42-75)
[2018-05-15 05:54] LABS: ANISOCYTOSIS 1+; BASOPHILLIC STIPPLING 1+; TOXIC GRAN 1+
[2018-05-15 05:55] LABS: <PLATELET ESTIMATE> DECREASED; <PLT MORPHOLOGY> NORMAL PLT MORPH
[2018-05-15 06:31] LABS: ANION GAP 11 mmol/L (5-15); CALCIUM 8.4 mg/dL (8.5-10.1); CHLORIDE 91 mmol/L (98-107); CREATININE 2.69 mg/dL (0.55-1.02)
[2018-05-15] MEDS: ALBUMIN HUMAN 25% 100 ML IV SCH ×2 (07:57→20:11)
[2018-05-15] MEDS: SENNA/DOCUSATE TABLET PO SCH (07:58)
[2018-05-15] MEDS: FONDAPARINUX 7.5 MG/0.6 ML SQ SCH (07:58)
[2018-05-15] MEDS: SODIUM CHLORIDE FLUSH 10ML SYR IVF SCH ×2 (07:58→20:11)
[2018-05-15] MEDS: AMIODARONE 200 MG TABLET PO SCH ×2 (07:58→20:10)
[2018-05-15] MEDS: PANTOPRAZOLE 40 MG IV IVPush SCH (08:47)
[2018-05-15] MEDS ORDERED: FUROSEMIDE 40 MG/4 ML IV SCH ×2 (16:00→21:00)
[2018-05-15] MEDS: NOREPINEPHRINE 8 MG in SODIUM CHLORIDE 0.9% 242 ML IV PRN (17:20)
[2018-05-16] MEDS: PIPERACILLIN/TAZO/PMX 3.375GM 50 ML IV SCH ×4 (01:38→19:53)
[2018-05-16 04:05] LABS: MEAN CORPUSCULAR HEMOGLOBIN 35.6 pg (27.0-34.8); MEAN CORPUSCULAR HGB CONC 35.2 g/dL (32.4-35.8); MEAN CORPUSCULAR VOLUME 101.2 fL (80-100); PLATELET COUNT 71 x10^3/uL (130-400); RED BLOOD COUNT 1.81 x10^6/uL (3.82-5.3); RED CELL DISTRIBUTION WIDTH 14.1 % (9.6-15.2)
[2018-05-16 04:50] LABS: MD YES
[2018-05-16 04:52] LABS: ANISOCYTOSIS 1+; BAND#(MANUAL) 0.18 x10^3/uL; BANDS%(MANUAL) 1 % (0-7); LYMPH#(MANUAL) 0.54 x10^3/uL (1-3.4); LYMPHS% (MANUAL) 3 % (22-44); MONOS% (MANUAL) 5 % (2-9); SEG#(MANUAL) 16.29 x10^3/uL (1.8-6.8); SEGS% (MANUAL) 91 % (42-75)
[2018-05-16 04:53] LABS: BASOPHILLIC STIPPLING 1+; TOXIC GRAN 1+
[2018-05-16 04:54] LABS: <PLATELET ESTIMATE> DECREASED; <PLT MORPHOLOGY> NORMAL PLT MORPH
[2018-05-16] MEDS: INSULIN LISPRO 100 UNITS/ML, PEN SQ-INSULIN SCH ×4 (05:00→22:22)
[2018-05-16] MEDS: PANTOPRAZOLE 40 MG IV IVPush SCH (05:29)
[2018-05-16 05:44] VITALS: BP 111/51
[2018-05-16 05:45] VITALS: BP 99/48
[2018-05-16 06:00] VITALS: BP 108/52
[2018-05-16 06:20] VITALS: BP 115/54
[2018-05-16 06:30] VITALS: BP 111/52
[2018-05-16 06:42] VITALS: BP 113/58
[2018-05-16 09:11] LABS: ALBUMIN 2.9 g/dL (3.4-5.0); ANION GAP 10 mmol/L (5-15); CALCIUM 8.3 mg/dL (8.5-10.1); CHLORIDE 91 mmol/L (98-107); CREATININE 2.53 mg/dL (0.55-1.02)
[2018-05-16] MEDS: NOREPINEPHRINE 8 MG in SODIUM CHLORIDE 0.9% 242 ML IV PRN (10:51)
[2018-05-16] MEDS: ALBUMIN HUMAN 25% 100 ML IV SCH ×2 (11:10→20:00)
[2018-05-16] MEDS: FUROSEMIDE 20 MG/2 ML IV SCH ×2 (11:11→21:39)
[2018-05-16] MEDS: AMIODARONE 200 MG TABLET PO SCH ×2 (11:11→19:59)
[2018-05-16] MEDS: SENNA/DOCUSATE TABLET PO SCH (11:12)
[2018-05-16] MEDS: FONDAPARINUX 7.5 MG/0.6 ML SQ SCH (11:12)
[2018-05-16] MEDS: SODIUM CHLORIDE FLUSH 10ML SYR IVF SCH ×2 (12:02→20:00)
[2018-05-16] MEDS: OXYcodone IR 5MG TABLET PO PRN ×2 (16:24→21:49)
[2018-05-17] MEDS: PIPERACILLIN/TAZO/PMX 3.375GM 50 ML IV SCH ×4 (01:34→20:12)
[2018-05-17 04:36] LABS: MEAN CORPUSCULAR HEMOGLOBIN 31.6 pg (27.0-34.8); MEAN CORPUSCULAR HGB CONC 33.7 g/dL (32.4-35.8); MEAN CORPUSCULAR VOLUME 93.8 fL (80-100); MEAN PLATELET VOLUME 8.9 fL (7.4-10.4); PLATELET COUNT 74 x10^3/uL (130-400); RED CELL DISTRIBUTION WIDTH 18.8 % (9.6-15.2)
[2018-05-17 04:46] LABS: ANION GAP 7 mmol/L (5-15); CALCIUM 8.4 mg/dL (8.5-10.1); CHLORIDE 93 mmol/L (98-107); CREATININE 2.48 mg/dL (0.55-1.02); TRIGLYCERIDES 97 mg/dL (50-200)
[2018-05-17 04:47] LABS: MD YES
[2018-05-17 04:49] LABS: ANISOCYTOSIS 1+; BAND#(MANUAL) 0.19 x10^3/uL; BANDS%(MANUAL) 1 % (0-7); LYMPH#(MANUAL) 0.93 x10^3/uL (1-3.4); LYMPHS% (MANUAL) 5 % (22-44); MONOS#(MANUAL) 0.74 x10^3/uL (0.3-2.7); MONOS% (MANUAL) 4 % (2-9); SEG#(MANUAL) 16.74 x10^3/uL (1.8-6.8); SEGS% (MANUAL) 90 % (42-75)
[2018-05-17 04:50] LABS: BASOPHILLIC STIPPLING 1+; POLYCHROMASIA 1+; STOMATOCYTES 1+
[2018-05-17 04:51] LABS: <PLATELET ESTIMATE> DECREASED; <PLT MORPHOLOGY> NORMAL PLT MORPH; PMNS WITH VACUOLES 1+
[2018-05-17] MEDS: INSULIN LISPRO 100 UNITS/ML, PEN SQ-INSULIN SCH ×4 (04:52→22:50)
[2018-05-17] MEDS: PANTOPRAZOLE 40 MG IV IVPush SCH (05:17)
[2018-05-17] MEDS: OXYcodone IR 5MG TABLET PO PRN (05:17)
[2018-05-17] MEDS: FONDAPARINUX 7.5 MG/0.6 ML SQ SCH (08:35)
[2018-05-17] MEDS: SODIUM CHLORIDE FLUSH 10ML SYR IVF SCH ×2 (08:36→20:38)
[2018-05-17] MEDS: ALBUMIN HUMAN 25% 100 ML IV SCH ×2 (08:50→20:42)
[2018-05-17] MEDS: SENNA/DOCUSATE TABLET PO SCH (09:00)
[2018-05-17] MEDS: AMIODARONE 200 MG TABLET PO SCH ×2 (09:00→21:00)
[2018-05-17] MEDS ORDERED: POTASSIUM CHLORIDE 10% 20 MEQ/15 ML UDC NG SCH ×2 (09:00)
[2018-05-17] MEDS ORDERED: POTASSIUM CHLORIDE 40 MEQ in SODIUM CHLORIDE 0.9% 100 ML IV ONE (11:00)
[2018-05-17] MEDS: FENTANYL PF 100 MCG/2ML IV PRN ×3 (11:26→20:35)
[2018-05-17] MEDS: METOCLOPRAMIDE 5 MG/ML, 2ML IVPush SCH ×3 (11:26→22:49)
[2018-05-17] MEDS: FUROSEMIDE 20 MG/2 ML IV SCH ×2 (11:26→22:17)
[2018-05-17] MEDS: DEXTROSE 50%, 50ML SYRINGE IVPush PRN (12:46)
[2018-05-17] MEDS ORDERED: D5%-0.45NACL+KCL 40MEQ 1,000 ML IV SCH (13:00)
[2018-05-17] MEDS: D5%-0.45NACL+KCL 40MEQ 1,000 ML IV SCH ×2 (22:17→23:08)
[2018-05-18] MEDS: PIPERACILLIN/TAZO/PMX 3.375GM 50 ML IV SCH ×4 (01:54→19:40)
[2018-05-18] MEDS: INSULIN LISPRO 100 UNITS/ML, PEN SQ-INSULIN SCH ×6 (03:00→22:18)
[2018-05-18] MEDS: FENTANYL PF 100 MCG/2ML IV PRN ×2 (04:10→19:40)
[2018-05-18] MEDS: METOCLOPRAMIDE 5 MG/ML, 2ML IVPush SCH ×3 (05:29→17:20)
[2018-05-18 05:34] LABS: MEAN CORPUSCULAR HEMOGLOBIN 32.5 pg (27.0-34.8); MEAN CORPUSCULAR HGB CONC 34.1 g/dL (32.4-35.8); MEAN CORPUSCULAR VOLUME 95.4 fL (80-100); MEAN PLATELET VOLUME 9.2 fL (7.4-10.4); PLATELET COUNT 76 x10^3/uL (130-400); RED BLOOD COUNT 2.15 x10^6/uL (3.82-5.3); RED CELL DISTRIBUTION WIDTH 19.3 % (9.6-15.2)
[2018-05-18 05:42] LABS: CHLORIDE 96 mmol/L (98-107)
[2018-05-18 05:49] LABS: MD YES
[2018-05-18 05:51] LABS: ANISOCYTOSIS 1+; BAND#(MANUAL) 0.17 x10^3/uL; BANDS%(MANUAL) 1 % (0-7); LYMPH#(MANUAL) 0.51 x10^3/uL (1-3.4); LYMPHS% (MANUAL) 3 % (22-44); MONOS#(MANUAL) 0.51 x10^3/uL (0.3-2.7); MONOS% (MANUAL) 3 % (2-9); NRBC % (MANUAL) 1 % (0-1); POLYCHROMASIA 1+; SEG#(MANUAL) 15.72 x10^3/uL (1.8-6.8); SEGS% (MANUAL) 93 % (42-75)
[2018-05-18 05:52] LABS: BASOPHILLIC STIPPLING 1+
[2018-05-18 05:53] LABS: <PLATELET ESTIMATE> DECREASED; <PLT MORPHOLOGY> NORMAL PLT MORPH; TOXIC GRAN 1+
[2018-05-18 05:55] LABS: STOMATOCYTES 1+
[2018-05-18 05:56] LABS: ALANINE AMINOTRANSFERASE 65 U/L (12-78); ALBUMIN 3.1 g/dL (3.4-5.0); ALKALINE PHOSPHATASE 170 U/L (45-117); ANION GAP 8 mmol/L (5-15); BILIRUBIN,TOTAL 1.5 mg/dL (0.2-1.0); CALCIUM 8.2 mg/dL (8.5-10.1); CREATININE 2.73 mg/dL (0.55-1.02); TOTAL PROTEIN 5.6 g/dL (6.4-8.2)
[2018-05-18] MEDS: PANTOPRAZOLE 40 MG IV IVPush SCH (06:20)
[2018-05-18] MEDS: AMIODARONE 200 MG TABLET PO SCH ×2 (07:25→21:00)
[2018-05-18] MEDS: D5%-0.45NACL+KCL 40MEQ 1,000 ML IV SCH (07:25)
[2018-05-18] MEDS: FONDAPARINUX 7.5 MG/0.6 ML SQ SCH (07:25)
[2018-05-18] MEDS: SODIUM CHLORIDE FLUSH 10ML SYR IVF SCH ×2 (07:26→21:17)
[2018-05-18] MEDS: ALBUMIN HUMAN 25% 100 ML IV SCH (07:38)
[2018-05-18] MEDS ORDERED: TPN PER PHARMACY MC PRN (09:30)
[2018-05-18] MEDS ORDERED: D5%-0.45NACL+KCL 40MEQ 1,000 ML IV SCH (13:00)
[2018-05-18] MEDS ORDERED: [UNRECOGNIZED DRUG - OTHER] IV SCH ×2 (17:00)
[2018-05-18] MEDS ORDERED: DEXTROSE 10% 500 ML IV PRN (17:00)
[2018-05-18] MEDS ORDERED: DEXTROSE 50%, 50ML SYRINGE IVPush PRN (17:00)
[2018-05-18] MEDS ORDERED: DEXTROSE 70% IV SCH ×2 (17:00)
[2018-05-18] MEDS ORDERED: FAT EMUL IV SCH ×2 (17:00)
[2018-05-18] MEDS ORDERED: SMOF TPN IV SCH ×2 (17:00)
[2018-05-18] MEDS ORDERED: AMINO ACID 10% IV SCH ×2 (17:00)
[2018-05-18] MEDS ORDERED: D5%-0.45% NACL 1,000 ML IV SCH (17:00)
[2018-05-18] MEDS: VALACYCLOVIR 500MG TABLET PO SCH (21:00)
[2018-05-19] VITALS (11 sets, daily range): BP systolic 81–148; BP diastolic 41–86
[2018-05-19] MEDS: METOCLOPRAMIDE 5 MG/ML, 2ML IVPush SCH ×2 (01:19→09:00)
[2018-05-19] MEDS: FENTANYL PF 100 MCG/2ML IV PRN ×4 (01:19→21:07)
[2018-05-19] MEDS: PIPERACILLIN/TAZO/PMX 3.375GM 50 ML IV SCH ×4 (01:19→23:32)
[2018-05-19 02:56] LABS: MEAN CORPUSCULAR HEMOGLOBIN 31.9 pg (27.0-34.8); MEAN CORPUSCULAR HGB CONC 33.5 g/dL (32.4-35.8); MEAN CORPUSCULAR VOLUME 95.2 fL (80-100); RED BLOOD COUNT 2.09 x10^6/uL (3.82-5.3); RED CELL DISTRIBUTION WIDTH 19.7 % (9.6-15.2)
[2018-05-19] MEDS: INSULIN LISPRO 100 UNITS/ML, PEN SQ-INSULIN SCH ×6 (03:00→23:00)
[2018-05-19 03:02] LABS: ANION GAP 8 mmol/L (5-15); CALCIUM 8.2 mg/dL (8.5-10.1); CHLORIDE 99 mmol/L (98-107); CREATININE 2.73 mg/dL (0.55-1.02)
[2018-05-19 03:06] LABS: BASOPHILS # (AUTO) 0.01 x10^3/uL (0-0.1); BASOPHILS % (AUTO) 0 % (0-1); EOSINOPHILS # (AUTO) 0.03 x10^3/uL (0-0.4); EOSINOPHILS % (AUTO) 0 % (1-7); LYMPHOCYTES # (AUTO) 0.48 x10^3/uL (1-3.4); LYMPHOCYTES % (AUTO) 3 % (22-44); MD YES; MONOCYTES # (AUTO) 0.21 x10^3/uL (0.2-0.8); MONOCYTES % (AUTO) 1 % (2-9); NEUTROPHILS # (AUTO) 16.97 x10^3/uL (1.8-6.8); NEUTROPHILS % (AUTO) 96 % (42-75); PLATELET COUNT 98 x10^3/uL (130-400); PREALBUMIN 8.3 mg/dL (20.0-40.0)
[2018-05-19 03:08] LABS: ANISOCYTOSIS 1+; BAND#(MANUAL) 0.17 x10^3/uL; BANDS%(MANUAL) 1 % (0-7); INTERNATIONAL NORMALIZED RATIO 1.28 (0.93-1.1); LYMPH#(MANUAL) 0.17 x10^3/uL (1-3.4); LYMPHS% (MANUAL) 1 % (22-44); MONOS#(MANUAL) 0.34 x10^3/uL (0.3-2.7); MONOS% (MANUAL) 2 % (2-9); POLYCHROMASIA 1+; PROTHROMBIN TIME 13.3 Seconds (9.6-11.5); SEG#(MANUAL) 16.42 x10^3/uL (1.8-6.8); SEGS% (MANUAL) 96 % (42-75)
[2018-05-19 03:09] LABS: BASOPHILLIC STIPPLING 1+; STOMATOCYTES 1+
[2018-05-19 03:10] LABS: MICROCYTOSIS 1+
[2018-05-19 03:11] LABS: <PLATELET ESTIMATE> DECREASED; <PLT MORPHOLOGY> NORMAL PLT MORPH
[2018-05-19] MEDS: PANTOPRAZOLE 40 MG IV IVPush SCH (06:26)
[2018-05-19] MEDS: ALBUTEROL/IPRATROPIUM 2.5MG/0.5MG, 3 ML INLINE PRN (07:10)
[2018-05-19] MEDS: AMIODARONE 200 MG TABLET PO SCH ×2 (09:00→20:27)
[2018-05-19] MEDS: VALACYCLOVIR 500MG TABLET PO SCH ×2 (09:00→20:27)
[2018-05-19] MEDS: ALBUTEROL/IPRATROPIUM 2.5MG/0.5MG, 3 ML INLINE SCH ×4 (10:25→22:47)
[2018-05-19] MEDS: SODIUM CHLORIDE FLUSH 10ML SYR IVF SCH ×2 (12:16→20:28)
[2018-05-19] MEDS ORDERED: AMINO ACID 10% IV SCH (17:00)
[2018-05-19] MEDS ORDERED: SMOF TPN IV SCH (17:00)
[2018-05-19] MEDS ORDERED: FAT EMUL IV SCH (17:00)
[2018-05-19] MEDS ORDERED: [UNRECOGNIZED DRUG - OTHER] IV SCH (17:00)
[2018-05-19] MEDS ORDERED: DEXTROSE 70% IV SCH (17:00)
[2018-05-19] MEDS: FILTER, DISP 1.2 MICRON FOR TPN/PVN IV PRN (17:29)
[2018-05-19] MEDS: DIAZEPAM 5 MG/ML, 10ML VIAL IV PRN (21:46)
[2018-05-20] MEDS: FENTANYL PF 100 MCG/2ML IV PRN ×2 (01:58→21:50)
[2018-05-20] MEDS: ALBUTEROL/IPRATROPIUM 2.5MG/0.5MG, 3 ML INLINE SCH ×6 (02:29→22:25)
[2018-05-20] MEDS: INSULIN LISPRO 100 UNITS/ML, PEN SQ-INSULIN SCH ×6 (03:00→22:19)
[2018-05-20 03:57] LABS: MEAN CORPUSCULAR HEMOGLOBIN 31.2 pg (27.0-34.8); MEAN CORPUSCULAR HGB CONC 32.8 g/dL (32.4-35.8); MEAN CORPUSCULAR VOLUME 94.9 fL (80-100); MEAN PLATELET VOLUME 9.9 fL (7.4-10.4); PLATELET COUNT 102 x10^3/uL (130-400); RED BLOOD COUNT 2.37 x10^6/uL (3.82-5.3); RED CELL DISTRIBUTION WIDTH 17.3 % (9.6-15.2)
[2018-05-20 04:02] LABS: ANION GAP 8 mmol/L (5-15); CALCIUM 8.3 mg/dL (8.5-10.1); CHLORIDE 101 mmol/L (98-107); CREATININE 2.47 mg/dL (0.55-1.02); TRIGLYCERIDES 125 mg/dL (50-200)
[2018-05-20 04:18] LABS: BASOPHILS # (AUTO) 0.02 x10^3/uL (0-0.1); BASOPHILS % (AUTO) 0 % (0-1); EOSINOPHILS # (AUTO) 0.03 x10^3/uL (0-0.4); EOSINOPHILS % (AUTO) 0 % (1-7); LYMPHOCYTES # (AUTO) 0.41 x10^3/uL (1-3.4); LYMPHOCYTES % (AUTO) 3 % (22-44); MD SCAN; MONOCYTES # (AUTO) 0.36 x10^3/uL (0.2-0.8); MONOCYTES % (AUTO) 2 % (2-9); NEUTROPHILS # (AUTO) 15.03 x10^3/uL (1.8-6.8); NEUTROPHILS % (AUTO) 95 % (42-75)
[2018-05-20] MEDS: PANTOPRAZOLE 40 MG IV IVPush SCH ×2 (06:03→21:05)
[2018-05-20] MEDS: PIPERACILLIN/TAZO/PMX 3.375GM 50 ML IV SCH ×3 (06:04→17:24)
[2018-05-20] MEDS: VALACYCLOVIR 500MG TABLET PO SCH ×2 (08:54→21:06)
[2018-05-20] MEDS: SODIUM CHLORIDE FLUSH 10ML SYR IVF SCH ×2 (08:54→21:07)
[2018-05-20] MEDS: AMIODARONE 200 MG TABLET PO SCH ×2 (08:54→21:07)
--- NOTE | 2018-05-20 10:26 | NUR ---
05/20 TF GOAL: w/ propofol: PROMOTE @ 55ML/HR off propofol: PROMOTE @ 65ML/HR
[2018-05-20 15:43] LABS: INTERNATIONAL NORMALIZED RATIO 1.17 (0.93-1.1); PROTHROMBIN TIME 12.2 Seconds (9.6-11.5)
[2018-05-20] MEDS ORDERED: AMINO ACID 10% IV SCH (17:00)
[2018-05-20] MEDS ORDERED: DEXTROSE 70% IV SCH (17:00)
[2018-05-20] MEDS ORDERED: SMOF TPN IV SCH (17:00)
[2018-05-20] MEDS ORDERED: FAT EMUL IV SCH (17:00)
[2018-05-20] MEDS ORDERED: [UNRECOGNIZED DRUG - OTHER] IV SCH (17:00)
[2018-05-20] MEDS: FILTER, DISP 1.2 MICRON FOR TPN/PVN IV PRN (17:23)
[2018-05-20 18:19] VITALS: BP 99/46
[2018-05-20 18:33] VITALS: BP 110/48
[2018-05-20 18:45] VITALS: BP 123/57
[2018-05-20 19:45] VITALS: BP 122/53
[2018-05-20 20:25] VITALS: BP 118/49
[2018-05-21] VITALS (8 sets, daily range): BP systolic 103–132; BP diastolic 46–70
[2018-05-21] MEDS: PIPERACILLIN/TAZO/PMX 3.375GM 50 ML IV SCH ×4 (00:29→19:14)
[2018-05-21] MEDS: ALBUTEROL/IPRATROPIUM 2.5MG/0.5MG, 3 ML INLINE SCH ×6 (02:12→22:28)
[2018-05-21] MEDS: FENTANYL PF 100 MCG/2ML IV PRN ×2 (02:43→05:53)
[2018-05-21] MEDS: INSULIN LISPRO 100 UNITS/ML, PEN SQ-INSULIN SCH ×5 (03:00→21:32)
[2018-05-21 04:06] LABS: MEAN CORPUSCULAR HGB CONC 34.6 g/dL (32.4-35.8); MEAN CORPUSCULAR VOLUME 95.4 fL (80-100); RED BLOOD COUNT 2.19 x10^6/uL (3.82-5.3); RED CELL DISTRIBUTION WIDTH 16.1 % (9.6-15.2)
[2018-05-21 04:19] LABS: ALANINE AMINOTRANSFERASE 31 U/L (12-78); ANION GAP 8 mmol/L (5-15); CHLORIDE 105 mmol/L (98-107)
[2018-05-21 04:21] LABS: ALKALINE PHOSPHATASE 78 U/L (45-117); BILIRUBIN,TOTAL 0.7 mg/dL (0.2-1.0); TOTAL PROTEIN 4.8 g/dL (6.4-8.2)
[2018-05-21 04:23] LABS: MD YES; MEAN PLATELET VOLUME 9.5 fL (7.4-10.4); PLATELET COUNT 91 x10^3/uL (130-400)
[2018-05-21 04:26] LABS: LYMPH#(MANUAL) 0.79 x10^3/uL (1-3.4); LYMPHS% (MANUAL) 6 % (22-44); MONOS#(MANUAL) 0.13 x10^3/uL (0.3-2.7); MONOS% (MANUAL) 1 % (2-9); SEG#(MANUAL) 12.18 x10^3/uL (1.8-6.8); SEGS% (MANUAL) 93 % (42-75)
[2018-05-21 04:27] LABS: ANISOCYTOSIS 1+
[2018-05-21 04:28] LABS: <PLATELET ESTIMATE> DECREASED; <PLT MORPHOLOGY> NORMAL PLT MORPH; POLYCHROMASIA 1+
[2018-05-21 04:33] LABS: INTERNATIONAL NORMALIZED RATIO 1.2 (0.93-1.1); PROTHROMBIN TIME 12.5 Seconds (9.6-11.5)
[2018-05-21] MEDS ORDERED: MIDAZOLAM 1 MG/ML, 5ML ONE (07:03)
[2018-05-21] MEDS ORDERED: FENTANYL PF 100 MCG/2ML ONE ×2 (07:03)
[2018-05-21] MEDS ORDERED: CEFAZOLIN PMX 1GM/50ML 50 ML IV ONE (08:00)
[2018-05-21] MEDS: SODIUM CHLORIDE FLUSH 10ML SYR IVF SCH ×2 (09:36→21:33)
[2018-05-21] MEDS: AMIODARONE 200 MG TABLET PO SCH ×2 (09:36→21:32)
[2018-05-21] MEDS: VALACYCLOVIR 500MG TABLET PO SCH (09:36)
[2018-05-21] MEDS: PANTOPRAZOLE 40 MG IV IVPush SCH ×2 (09:37→21:32)
[2018-05-21] MEDS ORDERED: DEXTROSE 70% IV SCH (17:00)
[2018-05-21] MEDS ORDERED: SMOF TPN IV SCH (17:00)
[2018-05-21] MEDS ORDERED: FAT EMUL IV SCH (17:00)
[2018-05-21] MEDS ORDERED: AMINO ACID 10% IV SCH (17:00)
[2018-05-21] MEDS ORDERED: [UNRECOGNIZED DRUG - OTHER] IV SCH (17:00)
[2018-05-21] MEDS: FILTER, DISP 1.2 MICRON FOR TPN/PVN IV PRN (17:37)
[2018-05-22] VITALS (12 sets, daily range): BP systolic 96–129; BP diastolic 48–59
[2018-05-22] MEDS: PIPERACILLIN/TAZO/PMX 3.375GM 50 ML IV SCH ×5 (00:36→23:59)
[2018-05-22] MEDS: FENTANYL PF 100 MCG/2ML IV PRN ×4 (02:38→22:40)
[2018-05-22] MEDS: ALBUTEROL/IPRATROPIUM 2.5MG/0.5MG, 3 ML INLINE SCH ×6 (02:47→22:50)
[2018-05-22 03:51] LABS: MEAN CORPUSCULAR HEMOGLOBIN 31.7 pg (27.0-34.8); MEAN CORPUSCULAR HGB CONC 34.2 g/dL (32.4-35.8); MEAN CORPUSCULAR VOLUME 92.7 fL (80-100); MEAN PLATELET VOLUME 9.2 fL (7.4-10.4); PLATELET COUNT 96 x10^3/uL (130-400); RED BLOOD COUNT 2.57 x10^6/uL (3.82-5.3); RED CELL DISTRIBUTION WIDTH 16.8 % (9.6-15.2)
[2018-05-22 04:03] LABS: ANION GAP 8 mmol/L (5-15); BASOPHILS # (AUTO) 0.01 x10^3/uL (0-0.1); BASOPHILS % (AUTO) 0 % (0-1); CALCIUM 8.2 mg/dL (8.5-10.1); CHLORIDE 103 mmol/L (98-107); CREATININE 2.05 mg/dL (0.55-1.02); EOSINOPHILS # (AUTO) 0.09 x10^3/uL (0-0.4); EOSINOPHILS % (AUTO) 1 % (1-7); LYMPHOCYTES # (AUTO) 0.42 x10^3/uL (1-3.4); LYMPHOCYTES % (AUTO) 3 % (22-44); MD SCAN; MONOCYTES # (AUTO) 0.15 x10^3/uL (0.2-0.8); MONOCYTES % (AUTO) 1 % (2-9); NEUTROPHILS # (AUTO) 11.65 x10^3/uL (1.8-6.8); NEUTROPHILS % (AUTO) 95 % (42-75)
[2018-05-22] MEDS: INSULIN LISPRO 100 UNITS/ML, PEN SQ-INSULIN SCH ×4 (04:07→20:50)
[2018-05-22] MEDS: PANTOPRAZOLE 40 MG IV IVPush SCH ×2 (08:56→20:51)
[2018-05-22] MEDS: AMIODARONE 200 MG TABLET PO SCH ×2 (08:56→20:51)
[2018-05-22] MEDS: VALACYCLOVIR 500MG TABLET PO SCH (08:57)
[2018-05-22] MEDS: SODIUM CHLORIDE FLUSH 10ML SYR IVF SCH ×2 (08:57→20:51)
[2018-05-22] MEDS ORDERED: VECURONIUM 10 MG ONE (15:08)
[2018-05-22] MEDS ORDERED: MIDAZOLAM 1 MG/ML, 5ML ONE (15:08)
[2018-05-22] MEDS ORDERED: VECURONIUM 10 MG IVPush ONE (15:30)
[2018-05-22] MEDS ORDERED: MIDAZOLAM 1 MG/ML, 5ML IVPush ONE (15:30)
[2018-05-22] MEDS ORDERED: [UNRECOGNIZED DRUG - OTHER] IV SCH (17:00)
[2018-05-22] MEDS ORDERED: AMINO ACID 10% IV SCH (17:00)
[2018-05-22] MEDS ORDERED: SMOF TPN IV SCH (17:00)
[2018-05-22] MEDS ORDERED: DEXTROSE 70% IV SCH (17:00)
[2018-05-22] MEDS ORDERED: FAT EMUL IV SCH (17:00)
[2018-05-22] MEDS: FILTER, DISP 1.2 MICRON FOR TPN/PVN IV PRN (17:30)
[2018-05-23 01:00] VITALS: BP 112/51
[2018-05-23] MEDS: ALBUTEROL/IPRATROPIUM 2.5MG/0.5MG, 3 ML INLINE SCH ×6 (03:00→22:42)
[2018-05-23] MEDS: FENTANYL PF 100 MCG/2ML IV PRN ×3 (04:25→21:25)
[2018-05-23 04:52] LABS: ANION GAP 7 mmol/L (5-15); CALCIUM 8.5 mg/dL (8.5-10.1); CHLORIDE 104 mmol/L (98-107); CREATININE 1.96 mg/dL (0.55-1.02); TRIGLYCERIDES 118 mg/dL (50-200)
[2018-05-23] MEDS: INSULIN LISPRO 100 UNITS/ML, PEN SQ-INSULIN SCH ×4 (05:21→21:00)
[2018-05-23] MEDS: PIPERACILLIN/TAZO/PMX 3.375GM 50 ML IV SCH (05:48)
[2018-05-23 05:51] LABS: MEAN CORPUSCULAR HEMOGLOBIN 31.8 pg (27.0-34.8); MEAN CORPUSCULAR HGB CONC 34.5 g/dL (32.4-35.8); MEAN CORPUSCULAR VOLUME 92.2 fL (80-100); MEAN PLATELET VOLUME 9.6 fL (7.4-10.4); PLATELET COUNT 93 x10^3/uL (130-400); RED BLOOD COUNT 3.01 x10^6/uL (3.82-5.3)
[2018-05-23 06:56] LABS: MD YES
[2018-05-23 06:59] LABS: BAND#(MANUAL) 0.12 x10^3/uL; BANDS%(MANUAL) 1 % (0-7); EOS#(MANUAL) 0.12 x10^3/uL (0.0-0.4); EOS% (MANUAL) 1 % (1-7); LYMPHS% (MANUAL) 5 % (22-44); MONOS#(MANUAL) 0.36 x10^3/uL (0.3-2.7); MONOS% (MANUAL) 3 % (2-9); REACTIVE LYMPHS # (MANUAL) 0.24 x10^3/uL (0-0); REACTIVE LYMPHS % (MANUAL) 2 % (0-0); SEG#(MANUAL) 10.47 x10^3/uL (1.8-6.8); SEGS% (MANUAL) 88 % (42-75)
[2018-05-23 07:00] LABS: ANISOCYTOSIS 1+
[2018-05-23 07:01] LABS: <PLATELET ESTIMATE> DECREASED; <PLT MORPHOLOGY> NORMAL PLT MORPH
[2018-05-23] MEDS: SODIUM CHLORIDE FLUSH 10ML SYR IVF SCH ×2 (08:22→21:25)
[2018-05-23] MEDS: PANTOPRAZOLE 40 MG IV IVPush SCH ×2 (08:23→21:25)
[2018-05-23] MEDS: AMIODARONE 200 MG TABLET PO SCH ×2 (08:24→21:25)
[2018-05-23] MEDS: VALACYCLOVIR 500MG TABLET PO SCH (09:00)
[2018-05-23] MEDS ORDERED: PHYTONADIONE 10 MG in SODIUM CHLORIDE 0.9% 50 ML IV ONE (09:30)
[2018-05-23] MEDS ORDERED: MICROFIBRILLAR COLLAGEN 1 GM TP ONE (09:30)
[2018-05-23] MEDS ORDERED: AMINO ACID 10% IV SCH (17:00)
[2018-05-23] MEDS ORDERED: DEXTROSE 70% IV SCH (17:00)
[2018-05-23] MEDS ORDERED: SMOF TPN IV SCH (17:00)
[2018-05-23] MEDS ORDERED: FAT EMUL IV SCH (17:00)
[2018-05-23] MEDS ORDERED: [UNRECOGNIZED DRUG - OTHER] IV SCH (17:00)
[2018-05-24] VITALS (9 sets, daily range): BP systolic 108–137; BP diastolic 34–100
[2018-05-24] MEDS: FENTANYL PF 100 MCG/2ML IV PRN (00:47)
[2018-05-24] MEDS: ALBUTEROL/IPRATROPIUM 2.5MG/0.5MG, 3 ML INLINE SCH ×6 (02:10→22:30)
[2018-05-24] MEDS: INSULIN LISPRO 100 UNITS/ML, PEN SQ-INSULIN SCH (03:00)
[2018-05-24 06:23] LABS: ANION GAP 10 mmol/L (5-15); CALCIUM 8.3 mg/dL (8.5-10.1); CHLORIDE 105 mmol/L (98-107)
[2018-05-24 06:25] LABS: CREATININE 1.91 mg/dL (0.55-1.02)
[2018-05-24 07:31] LABS: BASOPHILS # (AUTO) 0.05 x10^3/uL (0-0.1); BASOPHILS % (AUTO) 1 % (0-1); EOSINOPHILS # (AUTO) 0.12 x10^3/uL (0-0.4); EOSINOPHILS % (AUTO) 1 % (1-7); LYMPHOCYTES # (AUTO) 0.56 x10^3/uL (1-3.4); LYMPHOCYTES % (AUTO) 5 % (22-44); MD SCAN; MEAN CORPUSCULAR HEMOGLOBIN 30.6 pg (27.0-34.8); MEAN CORPUSCULAR HGB CONC 34.4 g/dL (32.4-35.8); MEAN CORPUSCULAR VOLUME 88.8 fL (80-100); MEAN PLATELET VOLUME 8.6 fL (7.4-10.4); MONOCYTES # (AUTO) 0.96 x10^3/uL (0.2-0.8); MONOCYTES % (AUTO) 9 % (2-9); NEUTROPHILS # (AUTO) 9.52 x10^3/uL (1.8-6.8); NEUTROPHILS % (AUTO) 85 % (42-75); PLATELET COUNT 109 x10^3/uL (130-400); RED BLOOD COUNT 3.38 x10^6/uL (3.82-5.3); RED CELL DISTRIBUTION WIDTH 16.5 % (9.6-15.2)
[2018-05-24] MEDS ORDERED: PHYTONADIONE 10 MG in SODIUM CHLORIDE 0.9% 50 ML IV ONE (09:00)
[2018-05-24] MEDS: ALBUMIN HUMAN 25% 100 ML IV SCH ×2 (09:10→16:53)
[2018-05-24] MEDS: AMIODARONE 200 MG TABLET PO SCH ×2 (09:14→22:04)
[2018-05-24] MEDS: VALACYCLOVIR 500MG TABLET PO SCH (09:14)
[2018-05-24] MEDS: SODIUM CHLORIDE FLUSH 10ML SYR IVF SCH ×2 (09:14→22:02)
[2018-05-24] MEDS: FUROSEMIDE 20 MG/2 ML IV SCH ×2 (10:46→17:55)
[2018-05-24] MEDS: PANTOPRAZOLE 40 MG IV IVPush SCH (21:56)
[2018-05-25] MEDS: FENTANYL PF 100 MCG/2ML IV PRN ×2 (00:43→09:40)
[2018-05-25] MEDS: ALBUMIN HUMAN 25% 100 ML IV SCH ×3 (00:54→20:56)
[2018-05-25] MEDS: ALBUTEROL/IPRATROPIUM 2.5MG/0.5MG, 3 ML INLINE SCH ×6 (02:45→22:30)
[2018-05-25 06:22] LABS: MEAN CORPUSCULAR HEMOGLOBIN 31.1 pg (27.0-34.8); MEAN CORPUSCULAR HGB CONC 34.4 g/dL (32.4-35.8); MEAN CORPUSCULAR VOLUME 90.3 fL (80-100); MEAN PLATELET VOLUME 8.2 fL (7.4-10.4); PLATELET COUNT 130 x10^3/uL (130-400); RED BLOOD COUNT 2.85 x10^6/uL (3.82-5.3); RED CELL DISTRIBUTION WIDTH 16.5 % (9.6-15.2)
[2018-05-25 06:32] LABS: CHLORIDE 106 mmol/L (98-107)
[2018-05-25 06:38] LABS: ANION GAP 7 mmol/L (5-15); CALCIUM 8.8 mg/dL (8.5-10.1); CREATININE 2.02 mg/dL (0.55-1.02)
[2018-05-25 06:45] LABS: MD YES
[2018-05-25 06:49] LABS: BAND#(MANUAL) 0.08 x10^3/uL; BANDS%(MANUAL) 1 % (0-7); EOS#(MANUAL) 0.08 x10^3/uL (0.0-0.4); EOS% (MANUAL) 1 % (1-7); LYMPH#(MANUAL) 0.88 x10^3/uL (1-3.4); LYMPHS% (MANUAL) 11 % (22-44); MONOS#(MANUAL) 0.56 x10^3/uL (0.3-2.7); MONOS% (MANUAL) 7 % (2-9); SEG#(MANUAL) 6.32 x10^3/uL (1.8-6.8); SEGS% (MANUAL) 79 % (42-75)
[2018-05-25 06:50] LABS: <PLATELET ESTIMATE> ADEQUATE; <PLT MORPHOLOGY> NORMAL PLT MORPH; ANISOCYTOSIS 1+; OTHER CELLS # (MANUAL) 0.08 x10^3/uL (0-0); OTHER CELLS % (MANUAL) 1 % (0-0)
[2018-05-25] MEDS: SODIUM CHLORIDE FLUSH 10ML SYR IVF SCH ×2 (09:19→20:56)
[2018-05-25] MEDS: VALACYCLOVIR 500MG TABLET PO SCH (09:20)
[2018-05-25] MEDS: PANTOPRAZOLE 40 MG IV IVPush SCH (09:20)
[2018-05-25] MEDS: FUROSEMIDE 40 MG/4 ML IV SCH ×2 (10:30→22:26)
[2018-05-25] MEDS ORDERED: FUROSEMIDE 20 MG/2 ML IV SCH (10:30)
[2018-05-25] MEDS ORDERED: FUROSEMIDE 20 MG/2 ML ONE (10:52)
--- NOTE | 2018-05-25 10:54 | NUR ---
Updated TF Recommendations: Vital AF 1.2 ON propofol 50 ml/hr goal OFF propofol 50 ml/hr goal
[2018-05-25 13:18] LABS: INTERNATIONAL NORMALIZED RATIO 1.02 (0.93-1.1); PROTHROMBIN TIME 10.7 Seconds (9.6-11.5)
[2018-05-25] MEDS ORDERED: PROPOFOL 100 ML IV SCH (14:35)
[2018-05-25] MEDS: AMIODARONE 200 MG TABLET PO SCH (20:56)
[2018-05-26] MEDS: FENTANYL PF 100 MCG/2ML IV PRN (02:12)
[2018-05-26] MEDS: ALBUTEROL/IPRATROPIUM 2.5MG/0.5MG, 3 ML INLINE SCH ×6 (03:00→22:30)
[2018-05-26 05:03] LABS: ANION GAP 8 mmol/L (5-15); CALCIUM 8.8 mg/dL (8.5-10.1); CHLORIDE 108 mmol/L (98-107); CREATININE 1.95 mg/dL (0.55-1.02); TRIGLYCERIDES 131 mg/dL (50-200)
[2018-05-26 05:06] LABS: MEAN CORPUSCULAR HEMOGLOBIN 31.3 pg (27.0-34.8); MEAN CORPUSCULAR HGB CONC 34.3 g/dL (32.4-35.8); MEAN CORPUSCULAR VOLUME 91.3 fL (80-100); MEAN PLATELET VOLUME 8.5 fL (7.4-10.4); PLATELET COUNT 153 x10^3/uL (130-400); RED BLOOD COUNT 2.74 x10^6/uL (3.82-5.3); RED CELL DISTRIBUTION WIDTH 16.5 % (9.6-15.2)
[2018-05-26] MEDS ORDERED: D5%-0.45% NACL 1,000 ML IV SCH ×3 (05:30→15:30)
[2018-05-26 05:45] LABS: MD YES
[2018-05-26 05:47] LABS: <PLATELET ESTIMATE> ADEQUATE; <PLT MORPHOLOGY> NORMAL PLT MORPH; ANISOCYTOSIS 1+; BAND#(MANUAL) 0.63 x10^3/uL; BANDS%(MANUAL) 8 % (0-7); LYMPH#(MANUAL) 0.63 x10^3/uL (1-3.4); LYMPHS% (MANUAL) 8 % (22-44); MONOS#(MANUAL) 0.16 x10^3/uL (0.3-2.7); MONOS% (MANUAL) 2 % (2-9); NRBC % (MANUAL) 1 % (0-1); SEG#(MANUAL) 6.48 x10^3/uL (1.8-6.8); SEGS% (MANUAL) 82 % (42-75)
[2018-05-26] MEDS ORDERED: NOREPINEPHRINE 1 MG/ML, 4ML ONE (06:02)
[2018-05-26] MEDS ORDERED: AMIODARONE 900 MG in DEXTROSE 5% 482 ML IV PRN (07:30)
[2018-05-26] MEDS ORDERED: AMIODARONE 150 MG in DEXTROSE 5% 100 ML IV ONE (07:30)
[2018-05-26] MEDS ORDERED: FILTER 0.22 MICRON IV PRN (07:30)
[2018-05-26] MEDS: ALBUMIN HUMAN 25% 100 ML IV SCH (08:00)
[2018-05-26] MEDS: SODIUM CHLORIDE FLUSH 10ML SYR IVF SCH ×2 (09:00→21:07)
[2018-05-26] MEDS ORDERED: TPN PER PHARMACY MC PRN (09:30)
[2018-05-26] MEDS: FUROSEMIDE 40 MG/4 ML IV SCH ×2 (10:17→21:07)
[2018-05-26] MEDS: PANTOPRAZOLE 40 MG IV IVPush SCH (10:17)
[2018-05-26] MEDS: AMIODARONE 200 MG TABLET PO SCH ×2 (10:18→21:07)
[2018-05-26] MEDS: VALACYCLOVIR 500MG TABLET PO SCH (10:18)
[2018-05-26] MEDS ORDERED: DEXTROSE 50%, 50ML SYRINGE IVPush ONE (15:30)
[2018-05-26] MEDS: morphine SULFATE 10 MG/ML, 1ML IVPush PRN (16:01)
[2018-05-26] MEDS ORDERED: AMINO ACID 10% IV SCH (17:00)
[2018-05-26] MEDS ORDERED: SMOF TPN IV SCH (17:00)
[2018-05-26] MEDS ORDERED: FAT EMUL IV SCH (17:00)
[2018-05-26] MEDS ORDERED: DEXTROSE 10% 500 ML IV PRN (17:00)
[2018-05-26] MEDS ORDERED: DEXTROSE 50%, 50ML SYRINGE IVPush PRN (17:00)
[2018-05-26] MEDS ORDERED: DEXTROSE 70% IV SCH (17:00)
[2018-05-26] MEDS ORDERED: [UNRECOGNIZED DRUG - OTHER] IV SCH (17:00)
[2018-05-26] MEDS ORDERED: PROPOFOL 100 ML IV ONE (19:43)
[2018-05-26] MEDS: PROPOFOL 100 ML IV PRN (21:08)
[2018-05-27] MEDS: PROPOFOL 100 ML IV PRN (01:18)
[2018-05-27] MEDS: FENTANYL PF 100 MCG/2ML IV PRN ×6 (01:18→22:40)
[2018-05-27] MEDS: ALBUTEROL/IPRATROPIUM 2.5MG/0.5MG, 3 ML INLINE SCH ×6 (02:30→22:07)
[2018-05-27 04:06] LABS: ANION GAP 7 mmol/L (5-15); CHLORIDE 111 mmol/L (98-107); CREATININE 1.79 mg/dL (0.55-1.02)
[2018-05-27 04:10] LABS: PREALBUMIN 7.8 mg/dL (20.0-40.0)
[2018-05-27 04:21] LABS: MEAN CORPUSCULAR HEMOGLOBIN 31.6 pg (27.0-34.8); MEAN CORPUSCULAR HGB CONC 34.1 g/dL (32.4-35.8); MEAN CORPUSCULAR VOLUME 92.5 fL (80-100); MEAN PLATELET VOLUME 8.3 fL (7.4-10.4); PLATELET COUNT 177 x10^3/uL (130-400); RED CELL DISTRIBUTION WIDTH 16.9 % (9.6-15.2)
[2018-05-27 04:40] LABS: MD YES
[2018-05-27 04:42] LABS: <PLATELET ESTIMATE> ADEQUATE; <PLT MORPHOLOGY> NORMAL PLT MORPH; ANISOCYTOSIS 1+; BAND#(MANUAL) 0.76 x10^3/uL; BANDS%(MANUAL) 7 % (0-7); EOS#(MANUAL) 0.22 x10^3/uL (0.0-0.4); EOS% (MANUAL) 2 % (1-7); LYMPH#(MANUAL) 0.76 x10^3/uL (1-3.4); LYMPHS% (MANUAL) 7 % (22-44); MONOS#(MANUAL) 0.86 x10^3/uL (0.3-2.7); MONOS% (MANUAL) 8 % (2-9); SEG#(MANUAL) 8.21 x10^3/uL (1.8-6.8); SEGS% (MANUAL) 76 % (42-75)
[2018-05-27] MEDS ORDERED: POTASSIUM CHLORIDE 20 MEQ in SODIUM CHLORIDE 0.9% 250 ML IV ONE (06:00)
[2018-05-27] MEDS: SODIUM CHLORIDE FLUSH 10ML SYR IVF SCH ×2 (07:34→20:33)
[2018-05-27] MEDS ORDERED: DESMOPRESSIN 24 MCG in SODIUM CHLORIDE 0.9% 50 ML IVPB ONE (09:30)
[2018-05-27] MEDS ORDERED: DEXTROSE 4 GM TAB.CHEW PO PRN (09:30)
[2018-05-27] MEDS: PANTOPRAZOLE 40 MG IV IVPush SCH (10:14)
[2018-05-27] MEDS: VALACYCLOVIR 500MG TABLET PO SCH (10:15)
[2018-05-27] MEDS: FUROSEMIDE 40 MG/4 ML IV SCH ×2 (10:15→22:40)
[2018-05-27] MEDS ORDERED: PANTOPRAZOLE 80 MG in SODIUM CHLORIDE 0.9% 50 ML IV ONE (11:00)
[2018-05-27 12:06] LABS: INTERNATIONAL NORMALIZED RATIO 1.02 (0.93-1.1); PROTHROMBIN TIME 10.7 Seconds (9.6-11.5)
[2018-05-27] MEDS ORDERED: DEXMEDETOMIDINE 200 MCG in SODIUM CHLORIDE 0.9% 48 ML IV PRN (12:30)
[2018-05-27 15:33] VITALS: BP 108/55
[2018-05-27 15:45] VITALS: BP 114/52
[2018-05-27 16:30] VITALS: BP 98/52
[2018-05-27] MEDS ORDERED: [UNRECOGNIZED DRUG - OTHER] IV SCH (17:00)
[2018-05-27] MEDS ORDERED: [UNRECOGNIZED DRUG - OTHER] IV SCH (17:00)
[2018-05-27] MEDS ORDERED: SMOF TPN IV SCH ×2 (17:00)
[2018-05-27] MEDS ORDERED: DEXTROSE 5% 1,000 ML IV SCH (17:00)
[2018-05-27] MEDS ORDERED: AMINO ACID 10% IV SCH ×2 (17:00)
[2018-05-27] MEDS ORDERED: DEXTROSE 70% IV SCH ×2 (17:00)
[2018-05-27] MEDS ORDERED: FAT EMUL IV SCH ×2 (17:00)
[2018-05-27] MEDS ORDERED: PVN PER PHARMACY MC SCH (17:00)
[2018-05-27 17:14] VITALS: BP 103/56
[2018-05-27] MEDS: FILTER, DISP 1.2 MICRON FOR TPN/PVN IV PRN (17:20)
[2018-05-28] MEDS ORDERED: AMIODARONE 150 MG in DEXTROSE 5% 100 ML IV ONE (01:30)
[2018-05-28] MEDS ORDERED: FILTER 0.22 MICRON IV ONE (01:30)
[2018-05-28] MEDS: FENTANYL PF 100 MCG/2ML IV PRN ×6 (02:00→22:46)
[2018-05-28] MEDS: ALBUTEROL/IPRATROPIUM 2.5MG/0.5MG, 3 ML INLINE SCH ×6 (03:00→22:05)
[2018-05-28 05:45] LABS: MEAN CORPUSCULAR HEMOGLOBIN 31.2 pg (27.0-34.8); MEAN CORPUSCULAR HGB CONC 33.7 g/dL (32.4-35.8); MEAN CORPUSCULAR VOLUME 92.7 fL (80-100); MEAN PLATELET VOLUME 8.3 fL (7.4-10.4); PLATELET COUNT 198 x10^3/uL (130-400); RED BLOOD COUNT 2.01 x10^6/uL (3.82-5.3); RED CELL DISTRIBUTION WIDTH 16.6 % (9.6-15.2)
[2018-05-28 05:48] LABS: ANION GAP 8 mmol/L (5-15); CALCIUM 8.4 mg/dL (8.5-10.1); CHLORIDE 109 mmol/L (98-107); CREATININE 1.56 mg/dL (0.55-1.02)
[2018-05-28 06:15] LABS: MD YES
[2018-05-28 06:18] LABS: <PLATELET ESTIMATE> ADEQUATE; <PLT MORPHOLOGY> NORMAL PLT MORPH; ANISOCYTOSIS 1+; BAND#(MANUAL) 0.19 x10^3/uL; BANDS%(MANUAL) 2 % (0-7); EOS% (MANUAL) 1 % (1-7); LYMPH#(MANUAL) 0.86 x10^3/uL (1-3.4); LYMPHS% (MANUAL) 9 % (22-44); MONOS#(MANUAL) 0.67 x10^3/uL (0.3-2.7); MONOS% (MANUAL) 7 % (2-9); POLYCHROMASIA 1+; SEGS% (MANUAL) 81 % (42-75)
[2018-05-28 06:19] LABS: BASOPHILLIC STIPPLING 1+
[2018-05-28 07:28] VITALS: BP 149/63
[2018-05-28 07:45] VITALS: BP 143/56
[2018-05-28] MEDS: FUROSEMIDE 20 MG/2 ML IV SCH ×2 (10:41→22:45)
[2018-05-28] MEDS: SODIUM CHLORIDE FLUSH 10ML SYR IVF SCH ×2 (10:42→19:55)
[2018-05-28] MEDS: FAMOTIDINE 20 MG/2 ML IVPush SCH (10:48)
[2018-05-28 11:00] VITALS: BP 160/83
[2018-05-28] MEDS ORDERED: AMINO ACID 10% IV SCH (17:00)
[2018-05-28] MEDS ORDERED: [UNRECOGNIZED DRUG - OTHER] IV SCH (17:00)
[2018-05-28] MEDS ORDERED: FAT EMUL IV SCH (17:00)
[2018-05-28] MEDS ORDERED: DEXTROSE 70% IV SCH (17:00)
[2018-05-28] MEDS ORDERED: TPN PER PHARMACY MC SCH (17:00)
[2018-05-28] MEDS ORDERED: DEXTROSE 5% 1,000 ML IV SCH (17:00)
[2018-05-28] MEDS ORDERED: SMOF TPN IV SCH (17:00)
[2018-05-28] MEDS: FILTER, DISP 1.2 MICRON FOR TPN/PVN IV PRN (17:11)
[2018-05-29] MEDS: FENTANYL PF 100 MCG/2ML IV PRN ×7 (02:17→21:03)
[2018-05-29] MEDS: ALBUTEROL/IPRATROPIUM 2.5MG/0.5MG, 3 ML INLINE SCH ×6 (02:44→22:10)
[2018-05-29 04:42] LABS: MEAN CORPUSCULAR HEMOGLOBIN 31.3 pg (27.0-34.8); MEAN CORPUSCULAR HGB CONC 34.1 g/dL (32.4-35.8); MEAN PLATELET VOLUME 8.7 fL (7.4-10.4); PLATELET COUNT 210 x10^3/uL (130-400); RED BLOOD COUNT 2.36 x10^6/uL (3.82-5.3); RED CELL DISTRIBUTION WIDTH 19.6 % (9.6-15.2)
[2018-05-29 05:49] LABS: MD YES
[2018-05-29 05:51] LABS: ANISOCYTOSIS 1+; BAND#(MANUAL) 0.26 x10^3/uL; BANDS%(MANUAL) 2 % (0-7); LYMPH#(MANUAL) 0.65 x10^3/uL (1-3.4); LYMPHS% (MANUAL) 5 % (22-44); METAMYELOCYTES# (MANUAL) 0.26 x10^3/uL (0-0); METAMYELOCYTES% (MANUAL) 2 % (0-1); MONOS#(MANUAL) 0.13 x10^3/uL (0.3-2.7); MONOS% (MANUAL) 1 % (2-9); MYELOCYTES# (MANUAL) 0.39 x10^3/uL (0-0); MYELOCYTES% (MANUAL) 3 % (0-0); POLYCHROMASIA 1+; SEG#(MANUAL) 11.31 x10^3/uL (1.8-6.8); SEGS% (MANUAL) 87 % (42-75)
[2018-05-29 05:52] LABS: PMNS WITH VACUOLES 1+
[2018-05-29 05:53] LABS: BASOPHILLIC STIPPLING 1+
[2018-05-29 05:54] LABS: <PLATELET ESTIMATE> ADEQUATE; <PLT MORPHOLOGY> NORMAL PLT MORPH
[2018-05-29 07:11] LABS: ANION GAP 3 mmol/L (5-15); CALCIUM 8.5 mg/dL (8.5-10.1); CHLORIDE 109 mmol/L (98-107); CREATININE 1.24 mg/dL (0.55-1.02); TRIGLYCERIDES 153 mg/dL (50-200)
[2018-05-29] MEDS: FUROSEMIDE 20 MG/2 ML IV SCH ×2 (07:37→22:35)
[2018-05-29] MEDS: FAMOTIDINE 20 MG/2 ML IVPush SCH (07:37)
[2018-05-29] MEDS: morphine SULFATE 10 MG/ML, 1ML IVPush PRN (07:37)
[2018-05-29] MEDS: SODIUM CHLORIDE FLUSH 10ML SYR IVF SCH ×2 (07:38→19:36)
[2018-05-29] MEDS ORDERED: LABETALOL 5MG/ML, 20ML IV PRN (10:00)
[2018-05-29] MEDS: ACETAMINOPHEN 325 MG TABLET PO PRN ×2 (10:45→17:14)
[2018-05-29] MEDS: PANTOPRAZOLE 80 MG in SODIUM CHLORIDE 0.9% 100 ML IV SCH ×2 (10:45→19:36)
[2018-05-29] MEDS ORDERED: PHYTONADIONE 10 MG in SODIUM CHLORIDE 0.9% 50 ML IV ONE (13:30)
[2018-05-29] MEDS: LABETALOL 5 MG/ML SYRINGE IV PRN ×3 (13:35→23:03)
[2018-05-29] MEDS ORDERED: DESMOPRESSIN IVPB ONE (14:30)
[2018-05-29] MEDS ORDERED: SODIUM CHLORIDE 0.9% IVPB ONE (14:30)
[2018-05-29] MEDS ORDERED: [UNRECOGNIZED DRUG - OTHER] IV SCH (17:00)
[2018-05-29] MEDS ORDERED: DEXTROSE 70% IV SCH ×2 (17:00)
[2018-05-29] MEDS ORDERED: AMINO ACID 10% IV SCH ×2 (17:00)
[2018-05-29] MEDS ORDERED: [UNRECOGNIZED DRUG - OTHER] IV SCH (17:00)
[2018-05-29] MEDS ORDERED: SMOF TPN IV SCH ×2 (17:00)
[2018-05-29] MEDS ORDERED: FAT EMUL IV SCH ×2 (17:00)
[2018-05-29] MEDS: FILTER, DISP 1.2 MICRON FOR TPN/PVN IV PRN (17:02)
[2018-05-29] MEDS: LORazepam 2 MG/ML, 1ML IVPush PRN (19:36)
[2018-05-29] MEDS: DIAZEPAM 5 MG/ML, 10ML VIAL IV PRN (23:03)
[2018-05-30] MEDS: LORazepam 2 MG/ML, 1ML IVPush PRN ×2 (02:06→19:30)
[2018-05-30] MEDS: ALBUTEROL/IPRATROPIUM 2.5MG/0.5MG, 3 ML INLINE SCH ×6 (02:10→22:29)
[2018-05-30 04:56] LABS: ANION GAP 4 mmol/L (5-15); CALCIUM 8.6 mg/dL (8.5-10.1); CHLORIDE 109 mmol/L (98-107); CREATININE 1.06 mg/dL (0.55-1.02)
[2018-05-30 05:00] LABS: MEAN CORPUSCULAR HEMOGLOBIN 31.4 pg (27.0-34.8); MEAN CORPUSCULAR HGB CONC 33.9 g/dL (32.4-35.8); MEAN CORPUSCULAR VOLUME 92.4 fL (80-100); MEAN PLATELET VOLUME 8.6 fL (7.4-10.4); PLATELET COUNT 258 x10^3/uL (130-400); RED CELL DISTRIBUTION WIDTH 19.1 % (9.6-15.2)
[2018-05-30] MEDS: PANTOPRAZOLE 80 MG in SODIUM CHLORIDE 0.9% 100 ML IV SCH ×2 (05:06→15:26)
[2018-05-30] MEDS: LABETALOL 5 MG/ML SYRINGE IV PRN (05:06)
[2018-05-30 05:31] LABS: INTERNATIONAL NORMALIZED RATIO 1.05 (0.93-1.1)
[2018-05-30 07:32] LABS: MD YES
[2018-05-30 07:34] LABS: BANDS%(MANUAL) 3 % (0-7); EOS#(MANUAL) 0.66 x10^3/uL (0.0-0.4); EOS% (MANUAL) 4 % (1-7); LYMPHS% (MANUAL) 3 % (22-44); METAMYELOCYTES# (MANUAL) 0.33 x10^3/uL (0-0); METAMYELOCYTES% (MANUAL) 2 % (0-1); MONOS% (MANUAL) 3 % (2-9); SEG#(MANUAL) 14.03 x10^3/uL (1.8-6.8); SEGS% (MANUAL) 85 % (42-75)
[2018-05-30 07:35] LABS: <PLATELET ESTIMATE> ADEQUATE; <PLT MORPHOLOGY> NORMAL PLT MORPH; ANISOCYTOSIS 1+; POLYCHROMASIA 1+
[2018-05-30] MEDS ORDERED: HYDROmorphone 1 MG/ML, 1ML VIAL IV PRN (09:00)
[2018-05-30] MEDS: ENALAPRILAT 1.25 MG/ML, 2ML IV SCH ×3 (09:23→20:37)
[2018-05-30] MEDS: SODIUM CHLORIDE FLUSH 10ML SYR IVF SCH ×2 (09:25→20:37)
[2018-05-30] MEDS: FUROSEMIDE 20 MG/2 ML IV SCH ×2 (09:26→22:25)
[2018-05-30] MEDS: FENTANYL PF 100 MCG/2ML IV PRN ×6 (09:38→23:37)
[2018-05-30] MEDS: DIAZEPAM 5 MG/ML, 10ML VIAL IV PRN (13:06)
[2018-05-30] MEDS ORDERED: SMOF TPN IV SCH (17:00)
[2018-05-30] MEDS ORDERED: DEXTROSE 70% IV SCH (17:00)
[2018-05-30] MEDS ORDERED: [UNRECOGNIZED DRUG - OTHER] IV SCH (17:00)
[2018-05-30] MEDS ORDERED: AMINO ACID 10% IV SCH (17:00)
[2018-05-30] MEDS ORDERED: FAT EMUL IV SCH (17:00)
[2018-05-30] MEDS: ACETAMINOPHEN 325 MG TABLET PO PRN (17:32)
[2018-05-30] MEDS: FILTER, DISP 1.2 MICRON FOR TPN/PVN IV PRN (17:36)
[2018-05-31] MEDS: PANTOPRAZOLE 80 MG in SODIUM CHLORIDE 0.9% 100 ML IV SCH ×2 (00:57→09:14)
[2018-05-31] MEDS: LORazepam 2 MG/ML, 1ML IVPush PRN ×2 (01:00→17:24)
[2018-05-31] MEDS: ALBUTEROL/IPRATROPIUM 2.5MG/0.5MG, 3 ML INLINE SCH ×6 (02:07→23:00)
[2018-05-31] MEDS: FENTANYL PF 100 MCG/2ML IV PRN ×6 (03:18→20:44)
[2018-05-31] MEDS: ENALAPRILAT 1.25 MG/ML, 2ML IV SCH ×4 (03:18→20:44)
[2018-05-31 03:46] LABS: MEAN CORPUSCULAR HEMOGLOBIN 31.1 pg (27.0-34.8); MEAN CORPUSCULAR HGB CONC 33.7 g/dL (32.4-35.8); MEAN CORPUSCULAR VOLUME 92.3 fL (80-100); MEAN PLATELET VOLUME 8.5 fL (7.4-10.4); PLATELET COUNT 290 x10^3/uL (130-400); RED BLOOD COUNT 2.35 x10^6/uL (3.82-5.3); RED CELL DISTRIBUTION WIDTH 19.1 % (9.6-15.2)
[2018-05-31 03:53] LABS: MD YES
[2018-05-31 03:56] LABS: ANION GAP 3 mmol/L (5-15); ANISOCYTOSIS 1+; BAND#(MANUAL) 0.16 x10^3/uL; BANDS%(MANUAL) 1 % (0-7); CALCIUM 8.3 mg/dL (8.5-10.1); CHLORIDE 111 mmol/L (98-107); CREATININE 1.03 mg/dL (0.55-1.02); EOS#(MANUAL) 0.48 x10^3/uL (0.0-0.4); EOS% (MANUAL) 3 % (1-7); LYMPH#(MANUAL) 0.64 x10^3/uL (1-3.4); LYMPHS% (MANUAL) 4 % (22-44); MONOS#(MANUAL) 1.45 x10^3/uL (0.3-2.7); MONOS% (MANUAL) 9 % (2-9); SEG#(MANUAL) 13.36 x10^3/uL (1.8-6.8); SEGS% (MANUAL) 83 % (42-75)
[2018-05-31 03:57] LABS: POLYCHROMASIA 1+
[2018-05-31 04:00] LABS: <PLATELET ESTIMATE> ADEQUATE; <PLT MORPHOLOGY> NORMAL PLT MORPH; OVALOCYTES 1+
[2018-05-31] MEDS: SODIUM CHLORIDE FLUSH 10ML SYR IVF SCH ×2 (09:13→20:45)
[2018-05-31] MEDS: FUROSEMIDE 20 MG/2 ML IV SCH ×2 (09:13→20:44)
[2018-05-31] MEDS ORDERED: SMOF TPN IV SCH (17:00)
[2018-05-31] MEDS ORDERED: [UNRECOGNIZED DRUG - OTHER] IV SCH (17:00)
[2018-05-31] MEDS ORDERED: FAT EMUL IV SCH (17:00)
[2018-05-31] MEDS ORDERED: DEXTROSE 70% IV SCH (17:00)
[2018-05-31] MEDS ORDERED: AMINO ACID 10% IV SCH (17:00)
[2018-05-31] MEDS: FILTER, DISP 1.2 MICRON FOR TPN/PVN IV PRN (18:06)
[2018-05-31] MEDS: PANTOPRAZOLE 40 MG IV IVPush SCH (18:07)
[2018-05-31] MEDS: ACETAMINOPHEN 325 MG TABLET PO PRN (22:52)
[2018-05-31] MEDS: DIAZEPAM 5 MG/ML, 10ML VIAL IV PRN (23:08)
[2018-06-01] MEDS: ALBUTEROL/IPRATROPIUM 2.5MG/0.5MG, 3 ML INLINE SCH ×6 (02:23→23:00)
[2018-06-01] MEDS: FENTANYL PF 100 MCG/2ML IV PRN ×3 (03:29→19:42)
[2018-06-01] MEDS: ENALAPRILAT 1.25 MG/ML, 2ML IV SCH ×3 (03:30→20:00)
[2018-06-01 04:04] LABS: MEAN CORPUSCULAR HEMOGLOBIN 31.4 pg (27.0-34.8); MEAN CORPUSCULAR HGB CONC 33.8 g/dL (32.4-35.8); MEAN CORPUSCULAR VOLUME 92.9 fL (80-100); MEAN PLATELET VOLUME 8.5 fL (7.4-10.4); PLATELET COUNT 380 x10^3/uL (130-400); RED BLOOD COUNT 2.54 x10^6/uL (3.82-5.3)
[2018-06-01 04:11] LABS: ANION GAP 4 mmol/L (5-15); CHLORIDE 108 mmol/L (98-107); CREATININE 0.96 mg/dL (0.55-1.02); TRIGLYCERIDES 227 mg/dL (50-200)
[2018-06-01 04:16] LABS: PREALBUMIN 8.2 mg/dL (20.0-40.0)
[2018-06-01 04:33] LABS: BAND#(MANUAL) 0.18 x10^3/uL; BANDS%(MANUAL) 1 % (0-7); EOS#(MANUAL) 0.18 x10^3/uL (0.0-0.4); EOS% (MANUAL) 1 % (1-7); MD YES; METAMYELOCYTES# (MANUAL) 0.18 x10^3/uL (0-0); METAMYELOCYTES% (MANUAL) 1 % (0-1)
[2018-06-01 04:34] LABS: ANISOCYTOSIS 1+; LYMPH#(MANUAL) 0.73 x10^3/uL (1-3.4); LYMPHS% (MANUAL) 4 % (22-44); MONOS#(MANUAL) 1.09 x10^3/uL (0.3-2.7); MONOS% (MANUAL) 6 % (2-9); OVALOCYTES 1+; POLYCHROMASIA 1+; SEG#(MANUAL) 15.83 x10^3/uL (1.8-6.8); SEGS% (MANUAL) 87 % (42-75)
[2018-06-01 04:35] LABS: <PLATELET ESTIMATE> ADEQUATE; <PLT MORPHOLOGY> NORMAL PLT MORPH
[2018-06-01] MEDS: PANTOPRAZOLE 40 MG IV IVPush SCH ×2 (05:48→17:36)
[2018-06-01] MEDS: LABETALOL 5 MG/ML SYRINGE IV PRN ×2 (08:17→17:37)
[2018-06-01] MEDS: METOCLOPRAMIDE 5 MG/ML, 2ML IV SCH ×3 (10:50→21:43)
[2018-06-01] MEDS: METHYLNALTREXONE 12 MG/0.6 ML SYR SQ SCH (10:50)
[2018-06-01] MEDS: SODIUM CHLORIDE FLUSH 10ML SYR IVF SCH ×2 (10:50→21:44)
[2018-06-01] MEDS: FUROSEMIDE 20 MG/2 ML IV SCH ×2 (10:51→21:41)
[2018-06-01] MEDS: INSULIN REGULAR LOW DOSE QDAY SQ-INSULIN SCH ×2 (11:00→22:28)
[2018-06-01] MEDS ORDERED: DEXTROSE 70% IV SCH (17:00)
[2018-06-01] MEDS ORDERED: SMOF TPN IV SCH (17:00)
[2018-06-01] MEDS ORDERED: [UNRECOGNIZED DRUG - OTHER] IV SCH (17:00)
[2018-06-01] MEDS ORDERED: FAT EMUL IV SCH (17:00)
[2018-06-01] MEDS ORDERED: AMINO ACID 10% IV SCH (17:00)
[2018-06-01] MEDS: ACETAMINOPHEN 325 MG TABLET PO PRN (17:36)
[2018-06-01] MEDS: FILTER, DISP 1.2 MICRON FOR TPN/PVN IV PRN (17:37)
[2018-06-02] MEDS: FENTANYL PF 100 MCG/2ML IV PRN (01:34)
[2018-06-02] MEDS: ENALAPRILAT 1.25 MG/ML, 2ML IV SCH ×5 (01:35→23:47)
[2018-06-02] MEDS: ALBUTEROL/IPRATROPIUM 2.5MG/0.5MG, 3 ML INLINE SCH ×6 (02:25→22:22)
[2018-06-02] MEDS: METOCLOPRAMIDE 5 MG/ML, 2ML IV SCH ×4 (04:33→21:00)
[2018-06-02] MEDS: PANTOPRAZOLE 40 MG IV IVPush SCH ×2 (04:33→18:36)
[2018-06-02 04:34] LABS: MEAN CORPUSCULAR HEMOGLOBIN 29.8 pg (27.0-34.8); MEAN CORPUSCULAR HGB CONC 32.1 g/dL (32.4-35.8); MEAN CORPUSCULAR VOLUME 92.9 fL (80-100); MEAN PLATELET VOLUME 8.5 fL (7.4-10.4); PLATELET COUNT 407 x10^3/uL (130-400); RED BLOOD COUNT 2.38 x10^6/uL (3.82-5.3); RED CELL DISTRIBUTION WIDTH 19.3 % (9.6-15.2)
[2018-06-02 04:40] LABS: ANION GAP 7 mmol/L (5-15); CHLORIDE 109 mmol/L (98-107)
[2018-06-02 04:41] LABS: CREATININE 0.86 mg/dL (0.55-1.02)
[2018-06-02 05:30] VITALS: BP 135/60
[2018-06-02 05:55] LABS: MD YES
[2018-06-02 05:58] LABS: <PLATELET ESTIMATE> INCREASED; <PLT MORPHOLOGY> NORMAL PLT MORPH; ANISOCYTOSIS 1+; EOS#(MANUAL) 0.18 x10^3/uL (0.0-0.4); EOS% (MANUAL) 1 % (1-7); LYMPH#(MANUAL) 0.71 x10^3/uL (1-3.4); LYMPHS% (MANUAL) 4 % (22-44); MONOS#(MANUAL) 0.53 x10^3/uL (0.3-2.7); MONOS% (MANUAL) 3 % (2-9); OVALOCYTES 1+; POLYCHROMASIA 1+; SEG#(MANUAL) 16.28 x10^3/uL (1.8-6.8); SEGS% (MANUAL) 92 % (42-75)
[2018-06-02] MEDS: SODIUM CHLORIDE FLUSH 10ML SYR IVF SCH ×2 (08:47→20:05)
[2018-06-02] MEDS: FUROSEMIDE 20 MG/2 ML IV SCH ×2 (08:47→21:00)
--- NOTE | 2018-06-02 10:41 | NUR ---
06/02 TF GOAL: VITAL AF 1.2 @ 60ML/HR
[2018-06-02] MEDS: INSULIN REGULAR LOW DOSE QDAY SQ-INSULIN SCH ×2 (12:59→23:44)
[2018-06-02] MEDS: ACETAMINOPHEN 325 MG TABLET PO PRN (13:04)
[2018-06-02] MEDS ORDERED: ONDANSETRON 2MG/ML, 2ML ONE (15:01)
[2018-06-02] MEDS: ONDANSETRON 2MG/ML, 2ML IVPush PRN (15:26)
[2018-06-02] MEDS ORDERED: DEXTROSE 70% IV SCH (17:00)
[2018-06-02] MEDS ORDERED: FILTER 0.22 MICRON IV PRN (17:00)
[2018-06-02] MEDS ORDERED: AMIODARONE 150 MG in DEXTROSE 5% 100 ML IV ONE ×2 (17:00→19:00)
[2018-06-02] MEDS ORDERED: FAT EMUL IV SCH (17:00)
[2018-06-02] MEDS ORDERED: [UNRECOGNIZED DRUG - OTHER] IV SCH (17:00)
[2018-06-02] MEDS ORDERED: AMIODARONE 50 MG/ML, 3ML IVPush ONE (17:00)
[2018-06-02] MEDS ORDERED: AMINO ACID 10% IV SCH (17:00)
[2018-06-02] MEDS ORDERED: SMOF TPN IV SCH (17:00)
[2018-06-02] MEDS ORDERED: AMIODARONE 900 MG in DEXTROSE 5% 482 ML IV PRN (18:30)
[2018-06-02] MEDS: FILTER, DISP 1.2 MICRON FOR TPN/PVN IV PRN (18:36)
[2018-06-02 19:13] LABS: ANION GAP 5 mmol/L (5-15); CALCIUM 8.2 mg/dL (8.5-10.1); CHLORIDE 109 mmol/L (98-107); CREATININE 0.93 mg/dL (0.55-1.02)
[2018-06-02] MEDS ORDERED: NOREPINEPHRINE 4 MG in SODIUM CHLORIDE 0.9% 246 ML IV PRN (23:30)
[2018-06-02] MEDS ORDERED: ALBUMIN HUMAN 25% 100 ML IV ONE ×2 (23:30)
[2018-06-02] MEDS ORDERED: VASOPRESSIN 100 UNIT in SODIUM CHLORIDE 0.9% 495 ML IV PRN (23:30)
[2018-06-03] MEDS: ALBUTEROL/IPRATROPIUM 2.5MG/0.5MG, 3 ML INLINE SCH ×3 (02:20→11:15)
[2018-06-03] MEDS: ONDANSETRON 2MG/ML, 2ML IVPush PRN ×2 (02:40→08:11)
[2018-06-03] MEDS: METOCLOPRAMIDE 5 MG/ML, 2ML IV SCH ×2 (04:29→08:41)
[2018-06-03 05:06] LABS: ANION GAP 7 mmol/L (5-15); CALCIUM 8.1 mg/dL (8.5-10.1); CHLORIDE 104 mmol/L (98-107)
[2018-06-03 05:07] LABS: CREATININE 1.14 mg/dL (0.55-1.02)
[2018-06-03] MEDS ORDERED: ALBUMIN HUMAN 25% 100 ML ONE (05:09)
[2018-06-03] MEDS: PANTOPRAZOLE 40 MG IV IVPush SCH (05:17)
[2018-06-03 05:23] LABS: MEAN CORPUSCULAR HEMOGLOBIN 30.8 pg (27.0-34.8); MEAN CORPUSCULAR HGB CONC 33.1 g/dL (32.4-35.8); MEAN CORPUSCULAR VOLUME 93.1 fL (80-100); MEAN PLATELET VOLUME 8.2 fL (7.4-10.4); PLATELET COUNT 425 x10^3/uL (130-400); RED CELL DISTRIBUTION WIDTH 19.2 % (9.6-15.2)
[2018-06-03] MEDS ORDERED: ALBUMIN HUMAN 25% 100 ML IV ONE (05:30)
[2018-06-03 05:51] LABS: MD YES
[2018-06-03 05:52] LABS: ANISOCYTOSIS 1+; BAND#(MANUAL) 0.17 x10^3/uL; BANDS%(MANUAL) 1 % (0-7); EOS#(MANUAL) 0.17 x10^3/uL (0.0-0.4); EOS% (MANUAL) 1 % (1-7); LYMPH#(MANUAL) 1.54 x10^3/uL (1-3.4); LYMPHS% (MANUAL) 9 % (22-44); METAMYELOCYTES# (MANUAL) 0.17 x10^3/uL (0-0); METAMYELOCYTES% (MANUAL) 1 % (0-1); MONOS#(MANUAL) 1.03 x10^3/uL (0.3-2.7); MONOS% (MANUAL) 6 % (2-9); SEG#(MANUAL) 14.02 x10^3/uL (1.8-6.8); SEGS% (MANUAL) 82 % (42-75)
[2018-06-03 05:53] LABS: <PLATELET ESTIMATE> INCREASED; <PLT MORPHOLOGY> NORMAL PLT MORPH; OVALOCYTES 1+; POLYCHROMASIA 1+
[2018-06-03 07:07] LABS: INTERNATIONAL NORMALIZED RATIO 1.1 (0.93-1.1); PROTHROMBIN TIME 11.5 Seconds (9.6-11.5)
[2018-06-03] MEDS: ENALAPRILAT 1.25 MG/ML, 2ML IV SCH (08:00)
[2018-06-03] MEDS: FUROSEMIDE 20 MG/2 ML IV SCH (08:40)
[2018-06-03] MEDS: SODIUM CHLORIDE FLUSH 10ML SYR IVF SCH (08:41)
[2018-06-03] MEDS: FENTANYL PF 100 MCG/2ML IV PRN (08:41)
[2018-06-03] MEDS: METHYLNALTREXONE 12 MG/0.6 ML SYR SQ SCH (09:30)
[2018-06-03 09:40] VITALS: BP 120/63
[2018-06-03] MEDS ORDERED: METH12DI SQ (09:56)
[2018-06-03] MEDS ORDERED: LORA2VIA6 IVPush (09:56)
[2018-06-03] MEDS ORDERED: IPRA3AMP30 INLINE (09:56)
[2018-06-03] MEDS ORDERED: Pantoprazole IVPush (09:56)
[2018-06-03] MEDS ORDERED: ONDA4VIA60 IVPush (09:56)
[2018-06-03] MEDS ORDERED: INSU100V5 SQ-INSULIN (09:56)
[2018-06-03] MEDS ORDERED: ACET325T14 PO (09:56)
[2018-06-03] MEDS ORDERED: FURO10VI37 IV (09:56)
[2018-06-03] MEDS ORDERED: Tpn Per Pharmacy MC (09:56)
[2018-06-03] MEDS ORDERED: LIDO10VI34 ENDO (09:56)
[2018-06-03] MEDS ORDERED: METO5VIA30 IV (09:56)
[2018-06-03] MEDS ORDERED: LABE5VIA13 IV (09:56)
[2018-06-03] MEDS ORDERED: POLY17PO5 PO (09:56)
[2018-06-03 10:05] VITALS: BP 126/64
[2018-06-03 10:20] VITALS: BP 120/63
[2018-06-03] MEDS: INSULIN REGULAR LOW DOSE QDAY SQ-INSULIN SCH (11:00)
[2018-06-03 11:20] VITALS: BP 118/69
[2018-06-03 12:16] VITALS: BP 118/62
[2018-06-03] MEDS ORDERED: AMIODARONE 150 MG in DEXTROSE 5% 100 ML IV ONE (12:30)
[2018-06-03] MEDS ORDERED: AMINO ACID 10% IV SCH (17:00)
[2018-06-03] MEDS ORDERED: FAT EMUL IV SCH (17:00)
[2018-06-03] MEDS ORDERED: [UNRECOGNIZED DRUG - OTHER] IV SCH (17:00)
[2018-06-03] MEDS ORDERED: SMOF TPN IV SCH (17:00)
[2018-06-03] MEDS ORDERED: FILTER, DISP 1.2 MICRON FOR TPN/PVN IV PRN (17:00)
[2018-06-03] MEDS ORDERED: DEXTROSE 70% IV SCH (17:00)
== END 2018-06-03 14:34 | DRG 4 ==
LOC: ED 13:30 → CCU 13:31 → ED 14:41
PROVIDERS: ADMIT Internal Medicine; ATTEND Internal Medicine
PROC: 5A1955Z Respiratory Ventilation, Greater than 96 Consecutive Hours (ICD-10-PCS; 2018-05-08)
PROC: 0T9B70Z Drainage of Bladder with Drainage Device, Via Natural or Artificial Opening (ICD-10-PCS; 2018-05-08)
PROC: 0BH17EZ Insertion of Endotracheal Airway into Trachea, Via Natural or Artificial Opening (ICD-10-PCS; 2018-05-08)
PROC: 30233N1 Transfusion of Nonautologous Red Blood Cells into Peripheral Vein, Percutaneous Approach (ICD-10-PCS; 2018-05-16)
PROC: 30233K1 Transfusion of Nonautologous Frozen Plasma into Peripheral Vein, Percutaneous Approach (ICD-10-PCS; 2018-05-16)
PROC: 0DH63UZ Insertion of Feeding Device into Stomach, Percutaneous Approach (ICD-10-PCS; 2018-05-21)
PROC: 0B113F4 Bypass Trachea to Cutaneous with Tracheostomy Device, Percutaneous Approach (ICD-10-PCS; 2018-05-22)
PROC: 0BJ08ZZ Inspection of Tracheobronchial Tree, Via Natural or Artificial Opening Endoscopic (ICD-10-PCS; 2018-05-22)
PROC: 5A1955Z Respiratory Ventilation, Greater than 96 Consecutive Hours (ICD-10-PCS; 2018-05-22)
PROC: 0DJD8ZZ Inspection of Lower Intestinal Tract, Via Natural or Artificial Opening Endoscopic (ICD-10-PCS; principal; 2018-05-25 10:45)
PROC: 02HV33Z Insertion of Infusion Device into Superior Vena Cava, Percutaneous Approach (ICD-10-PCS; 2018-05-26)
PROC: B548ZZA Ultrasonography of Superior Vena Cava, Guidance (ICD-10-PCS; 2018-05-26)
DX: A41.52 Sepsis due to Pseudomonas (principal); E43 Unspecified severe protein-calorie malnutrition; I21.4 Non-ST elevation (NSTEMI) myocardial infarction; I50.43 Acute on chronic combined systolic (congestive) and diastolic (congestive) heart failure; J15.1 Pneumonia due to Pseudomonas; J96.21 Acute and chronic respiratory failure with hypoxia; J96.22 Acute and chronic respiratory failure with hypercapnia; K72.00 Acute and subacute hepatic failure without coma; N17.0 Acute kidney failure with tubular necrosis; R65.21 Severe sepsis with septic shock; K62.6 Ulcer of anus and rectum; D62 Acute posthemorrhagic anemia; D68.69 Other thrombophilia; E87.1 Hypo-osmolality and hyponatremia; I42.9 Cardiomyopathy, unspecified; I47.1 Supraventricular tachycardia; I47.2 Ventricular tachycardia; I48.1 Persistent atrial fibrillation; I48.92 Unspecified atrial flutter; I70.269 Atherosclerosis of native arteries of extremities with gangrene, unspecified extremity; L97.809 Non-pressure chronic ulcer of other part of unspecified lower leg with unspecified severity; J44.1 Chronic obstructive pulmonary disease with (acute) exacerbation; J44.0 Chronic obstructive pulmonary disease with (acute) lower respiratory infection; A60.04 Herpesviral vulvovaginitis; C50.919 Malignant neoplasm of unspecified site of unspecified female breast; D47.3 Essential (hemorrhagic) thrombocythemia; R31.9 Hematuria, unspecified; D53.9 Nutritional anemia, unspecified; D73.5 Infarction of spleen; D75.89 Other specified diseases of blood and blood-forming organs; I95.9 Hypotension, unspecified; E16.2 Hypoglycemia, unspecified; E87.6 Hypokalemia; F17.200 Nicotine dependence, unspecified, uncomplicated; I25.10 Atherosclerotic heart disease of native coronary artery without angina pectoris; I45.4 Nonspecific intraventricular block; I48.0 Paroxysmal atrial fibrillation; I50.82 Biventricular heart failure; Z51.5 Encounter for palliative care; Z66 Do not resuscitate; Z85.3 Personal history of malignant neoplasm of breast; Z90.12 Acquired absence of left breast and nipple; Z91.19 Patient's noncompliance with other medical treatment and regimen; Z95.810 Presence of automatic (implantable) cardiac defibrillator; Z99.81 Dependence on supplemental oxygen; Z88.1 Allergy status to other antibiotic agents; Z79.899 Other long term (current) drug therapy
CPT/HCPCS: 36415; 36600; 74018; 84145; 87400; 99285; J3475; J3490; J7042; J7620; 31622; 36573; 70450; 71045; 71250; 74176; 78278; 80048; 80053; 80061; 81001; 82040; 82330; 82533; 82542; 82607; 82803; 82962; 83605; 83735; 83880; 84100; 84134; 84295; 84443; 84478; 84484; 85014; 85018; 85025; 85379; 85384; 85520; 85610; 85670; 85730; 86850; 86900; 86923; 87040; 87070; 87077; 87081; 87086; 87186; 87205; 93005; 93306; 93922; 93925; 93970; 94002; 94003; 94640; 94660; B4087; G0378; J0610; J0690; J0696; J1644; J1650; J1940; J2250; J2405; J2543; J2597; J2704; J3010; J3430; J3480; J7060; J7070; P9047; A9560; C1751; C9113; C9898; J0282; J0330; J1652; J1815; J2060; J2270; J2370; J2765; J2930; J3420; J7030; J7040; J7050; P9016; P9017